=== PATIENT | male | born 1955 | race Caucasian/White ===

== ENCOUNTER → 2024-04-12 06:24 | Outpatient (REF) | payer MEDICARE, OTHER, SELFPAY ==
[2024-04-12 10:00] LABS: Hematocrit 40.7 % (39.0-52.0); Hemoglobin 14.2 g/dL (13.0-18.0); Mean Corp Hgb Conc. 34.9 g/dL (33.0-37.0); Mean Corpuscular Volume 88.9 fL (80.0-94.0); Mean Platelet Volume 11.7 fL (7.4-10.4); Platelet Count 197 10^3/uL (130-400); Red Blood Cell Count 4.58 10^6/uL (4.70-6.10); Red Cell Dist. Width 13.2 % (11.5-14.5); White Blood Cell Count 5.2 10^3/uL (4.8-10.8)
[2024-04-12 10:12] LABS: ALT (SGPT) 21 U/L (0-50); AST (SGOT) 26 U/L (17-59); Alkaline Phosphatase 76 U/L (38-126); Blood Urea Nitrogen 20 mg/dl (9-20); Calcium 9.1 mg/dl (8.4-10.2); Carbon Dioxide 28 mmol/L (22-30); Chloride 104 mmol/L (98-107); Glucose 108 mg/dl (70-99); HDL Cholesterol 68 mg/dl; LDL Cholesterol, Calculated 140 mg/dl; Sodium 138 mmol/L (135-145); Total Bilirubin 0.8 mg/dl (0.2-1.3); Total Cholesterol 220 mg/dl (50-199); Total Protein 6.7 g/dl (6.3-8.2); Triglyceride 61 mg/dl (10-149); Very Low Density Lipoprotein 12 mg/dl (0-30); eGFR > 60.00
[2024-04-12 10:43] LABS: PSA, Total - Screen 1.39 ng/ml (0.0-4.0); TSH Reflex To Free T4 0.77 uIU/ml (0.47-4.68)
[2024-04-12 14:39] LABS: Lyme Antibody Screen, EIA Negative (Negative)
== END ==
LOC: HWRAD 06:24
PROVIDERS: ATTENDING PHYSICIAN Physician Assistant
DX: G43.E09 Chronic migraine with aura, not intractable, without status migrainosus (principal); G43.909 Migraine, unspecified, not intractable, without status migrainosus; G89.29 Other chronic pain; M25.511 Pain in right shoulder; R10.11 Right upper quadrant pain; E78.00 Pure hypercholesterolemia, unspecified; Z12.5 Encounter for screening for malignant neoplasm of prostate
CPT/HCPCS: 36415; 70450; 73030; 80053; 80061; 84443; 85027; 86618; G0103

== ENCOUNTER → 2024-04-26 14:39 | Outpatient (REF) | payer MEDICARE, OTHER, SELFPAY | LOC: HWRCS 14:39 | PROVIDERS: ATTENDING PHYSICIAN Physician Assistant | DX: R01.1 Cardiac murmur, unspecified (principal) | CPT/HCPCS: 93306 ==

== ENCOUNTER 2024-07-05 07:54 | Day surgery (SDC) | payer MEDICARE, OTHER, SELFPAY ==
[2024-07-05] VITALS (14 sets, daily range): BP systolic 100–146; BP diastolic 50–77; BMI 25.4
[2024-07-05] MEDS: LOW STRENGTH ASPIRIN 81 MG PO (09:23)
[2024-07-05] MEDS: NSS 224 ML IV (09:24)
[2024-07-05 09:37] LABS: Hematocrit 45.2 % (39.0-52.0); Hemoglobin 15.9 g/dL (13.0-18.0); Mean Corp Hgb Conc. 35.2 g/dL (33.0-37.0); Mean Corpuscular Hgb 31.5 pg (27.0-31.0); Mean Corpuscular Volume 89.5 fL (80.0-94.0); Mean Platelet Volume 10.3 fL (7.4-10.4); Platelet Count 252 10^3/uL (130-400); Red Blood Cell Count 5.05 10^6/uL (4.70-6.10); Red Cell Dist. Width 12.8 % (11.5-14.5); White Blood Cell Count 6.5 10^3/uL (4.8-10.8)
[2024-07-05 09:51] LABS: Blood Urea Nitrogen 25 mg/dl (9-20); Calcium 9.8 mg/dl (8.4-10.2); Carbon Dioxide 25 mmol/L (22-30); Chloride 103 mmol/L (98-107); Estimated Creatinine Clearance 60 ml/min; Glucose 108 mg/dl (70-99); Potassium 4.6 mmol/L (3.5-5.1); Sodium 140 mmol/L (135-145); eGFR > 60.00
--- NOTE | 2024-07-05 11:49 | ITS.CL.CATH ---
Facility Planner - Catheterization
Cardiac Catheterization
Procedure Report:
LEFT HEART CATHETERIZATION
Date of Procedure: July 05, 2024
Referring: Dr. Perry Sood
PROCEDURES:
1. Coronary angiography
INDICATION: Severe symptomatic aortic stenosis
ACCESS: Right radial artery, 6 Syriac sheath
HEMODYNAMICS : (mmHg)
AO (s/d) : 115/68
CORONARY FINDINGS
DOMINANCE: Right
LEFT MAIN: Normal
LEFT ANTERIOR DESCENDING: The LAD arises normally from the left main running in the anterior interventricular groove. The LAD supplies a single large diagonal branch from its midportion. Only minor irregularities are noted in the LAD or diagonal
branch
CIRCUMFLEX: The circumflex is a medium caliber nondominant vessel giving rise to a small bifurcating OM1 which arises proximally and terminating in a moderate caliber OM 2. The circumflex and obtuse marginal branches are widely patent
RIGHT CORONARY ARTERY: The right coronary artery is a large-caliber dominant vessel that gives rise to a large PDA and large posterolateral branch. Only minor luminal irregularities are noted.
RADIATION SUMMARY: Fluoro Time (min): 4.8, Dose (mGy): 308, DAP (Gy.cm2) : 22.6
Closure Device: TR band
CONCLUSIONS
1. Nonobstructive coronary disease
2. Symptomatic aortic stenosis
RECOMMENDATIONS
1. Nonobstructive coronary disease
Copy to: Dr. Perry Sood
[2024-07-05] MEDS: NSS 1000 IV (12:16)
--- NOTE | 2024-07-05 13:23 | CONSULT.STRU ---
Consultation
-
Date/Time Consultation Requested: 07/05/2024
Date/Time Consultation Performed: 07/05/2024
Requesting Provider: Dr. Elan Hernández
Performing Provider: ZORA Hui
Reason for Consultation: Severe Aortic Stenosis/ TAVR evaluation
Patient History
Physicians
Family Physician: Alejandrina Horowitz
Outpatient Proof Tester: Dr. Sood
Primary Proof Tester: Dr. Sood
History of Present Illness
Mr. Huffman is a very pleasant 68yo gentleman who is here today for his cardiac catheterization as part of the evaluation of his aortic stenosis. He is known to have a bicuspid aortic valve. His echocardiogram is notable for PG/MG 92/60, CHEYENNE: 0.8, AV
peak velocity 479cm/s. Moderate AI. EF is 60-65%. Mild MR. Mild TR. Cardiac cath complete with nonobstructive CAD. Patient denies chest pain, palpitations, PND, orthopnea and peripheral edema. He is unsure if he has any symptoms. He does have GROVES
with vigorous activity such as chasing his dog. He may note some mild fatigue. Overall he remains fairly active.
Reviewed the pathophysiology of aortic stenosis with the patient. Explained the treatment options of SAVR and TAVR. Explained the TAVR evaluation process including follow up BMP, CT TAVR scan, CT surgery consult and Heart Team discussion. Provided
with script for BMP next week, script and appointment for CT TAVR, Consult appointment with Dr. Fitch and a copy of the TAVR education booklet with contact information. Allowed for and answered questions.
Past Medical History
Past Medical History: Cancer (Basal Cell left eye) and Other (Migraines)
Past Surgical History
Past Surgical History: Other (Basal cell excision left eye)
Dental History
Dr. Parker - regular dental care every 6 months
Family History
Mother: Still Living
Father: at Age (80yo, prostate CA and kidney failure)
Social History
Alcohol: Occasional
Drug: None
Tobacco: Non-Smoker
Personal:
Living: With Spouse
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
Allergies
Allergy/AdvReac Type Severity Reaction Status Date / Time
No Known Allergies Allergy Verified 07/05/24 09:12
Home Medications
�Medication �Instructions �Recorded �Confirmed �Type
aspirin 81 mg tablet,delayed 81 mg PO DAILY #1 tab 07/05/24 Rx
release
avdroxpdywyr-knl-nnmly acid-vit 2 tab PO DAILY 07/05/24 07/05/24 History
K-lycop 400 mcg-20 mcg-370 mcg
tablet (Men's 50 Plus Multivitamin)
STS%
STS %: 0.625%
Review of Systems
-
History Source: Patient
General: Reports Fatigue (mild)
Respiratory: Reports No Symptoms; Denies SOB, Cough, Asthma or PND
Cardiac: Reports No Symptoms; Denies Chest Pain, Palpitations or Edema
Abdomen/GI: Reports No Symptoms; Denies Abdominal Pain, Reflux, Nausea, Vomiting or Diarrhea
: Reports No Symptoms; Denies Dysuria
Musculoskeletal: Reports No Symptoms
Skin: Reports No Symptoms
Neurological: Reports Headaches (migraine history)
Vascular: Reports No Symptoms
Physical Exam
Vital Signs
Temp 98.3 F 07/05/24 11:20
Temp route: Oral 07/05/24 11:15
Pulse 56 07/05/24 13:03
Resp Rate 18 07/05/24 11:30
Blood pressure 105/60 07/05/24 13:03
Blood pressure extremity used: Left upper arm 07/05/24 11:15
Position: Sitting 07/05/24 11:15
MAP (cuff-Nathanael Monitor) 75 07/05/24 13:03
SaO2 98 07/05/24 13:03
Oxygen Mode of Delivery Room air 07/05/24 11:15
Can the patient verbally communicate their pain? Yes 07/05/24 13:05
Actual Weight 74.6 kg 07/05/24 09:12
Body Mass Index (BMI) 25.4 07/05/24 09:12
Labs
07/05/24 09:17
07/05/24 09:17
Diagnostic Studies
Echocardiogram 04/26/2024
CONCLUSIONS
Normal left ventricular size, wall thickness and systolic function. No regional
wall motion abnormalities are seen. LV ejection fraction is 60-65% by Guerra's
method of discs. Normal diastolic function.
Mildly thickened mitral valve leaflets with mild mitral regurgitation.
Moderately dilated left atrium. Indexed LA volume is moderately abnormal (42-48
mL/m2).
Calcified, trileaflet aortic valve with decreased leaflet excursion. Severe
aortic stenosis. Peak and mean gradients of 92 and 60 mmHg, respectively
(from the RSB). Estimated CHEYENNE is 0.8 cm2., using an LVOT of 2.1 cm. Mild to
moderate aortic regurgitation.
Since echocardiogram March 2019, the aortic stenosis has worsened. Mean
pressure gradient is increased from 29 mmHg to 60 mmHg.
Indications:
Cardiac murmur, unspecified, Nonrheumatic aortic (valve) stenosis
Rhythm: Sinus
Portable Study: No
Technical Quality: Fair
Contrast: None
BP: 102 / 60
PROCEDURE
A complete Transthoracic Echocardiogram was performed utilizing two-dimensional
evaluation with color flow and spectral Doppler analysis.
FINDINGS
Left Ventricle
Normal left ventricular size, wall thickness and systolic function. No regional
wall motion abnormalities are seen. LV ejection fraction is 60-65% by Guerra's
method of discs. Normal diastolic function.
Right Ventricle
Normal right ventricular size and function.
Left Atrium
Moderately dilated left atrium. Indexed LA volume is moderately abnormal (42-48
mL/m2).
Right Atrium
Normal right atrial size.
Mitral Valve
Mildly thickened mitral valve leaflets with mild mitral regurgitation.
Aortic Valve
Calcified, trileaflet aortic valve with decreased leaflet excursion. Severe
aortic stenosis. Peak and mean gradients of 92 and 60 mmHg, respectively
(from the RSB). Estimated CHEYENNE is 0.8 cm2., using an LVOT of 2.1 cm. Mild to
moderate aortic regurgitation.
Tricuspid Valve
Tricuspid valve opens normally with mild tricuspid regurgitation. Estimated
pulmonary artery pressure of 25 mmHg, assuming a right atrial pressure of 3
mmHg.
Pulmonic Valve
Pulmonic valve opens normally with trace pulmonic regurgitation.
Pericardium\\Pleura
Normal pericardium without effusion.
Aorta
Sinus of Valsalva is 3.3 cm., S-T junction is 2.9 cm. and proximal ascending
aorta 3.8 cm.
Other Finding
The IVC is of normal size and demonstrates normal respiratory variation.
Interatrial septum is intact with no evidence of shunting by color flow
Doppler. No intracardiac mass or thrombus formation seen.
MEASUREMENTS (Male / Female) Normal Values
2D ECHO
LV Diastolic Diameter PLAX 5.0 cm 4.2 - 5.9 / 3.9 - 5.3 cm
LV Systolic Diameter PLAX 3.1 cm
IVS Diastolic Thickness 1.0 cm 0.6 - 1.0 / 0.6 - 0.9 cm
LVPW Diastolic Thickness 1.0 cm 0.6 - 1.0 / 0.6 - 0.9 cm
LV Relative Wall Thickness 0.4
LVOT Diameter 2.1 cm
LV Ejection Fraction MOD BP 62.1 % >= 55 %
LV Stroke Volume MOD BP 72.0 cm3
LV Cardiac Index MOD BP 2367.2 cm3/min
LV Stroke Volume MOD 4C 65.0 cm3
LV Stroke Volume 4C AL 66.7 cm3
LV Stroke Volume MOD 2C 73.0 cm3
LV Stroke Volume 2C AL 78.6 cm3
LA Area 4C View 23.6 cm2 <= 20 cm2
LA Length 4C 5.7 cm
LA Volume 72.0 cm3 18 - 58 / 22 - 52 cm3
LA Volume Index 43.9 cm3/m2 16 - 34 cm3/m2
Ascending Aorta Diameter 3.8 cm
M-MODE
AV Cusp Separation MM 1.0 cm
DOPPLER
AV Peak Velocity 479.0 cm/s
AV Peak Gradient 91.8 mmHg
AV Mean Gradient 60.0 mmHg
AV Velocity Time Integral 113.4 cm
AI Peak Velocity 257.0 cm/s
AI Peak Gradient 26.4 mmHg
AI Pressure Half Time 445.0 ms
LVOT Peak Velocity 110.0 cm/s
LVOT Peak Gradient 4.8 mmHg
LVOT Velocity Time Integral 30.7 cm
LVOT Stroke Volume 106.3 cm3
LVOT Stroke Volume Index 56.4 ml/m2 empty
LVOT Cardiac Index 3496.0 cm3/min\\m2
AV Area Cont Eq vti 0.9 cm2
AV Area Cont Eq pk 0.8 cm2
Mitral E Point Velocity 66.1 cm/s
Mitral A Point Velocity 44.9 cm/s
Mitral E to A Ratio 1.5
LV E' Lateral Velocity 8.7 cm/s
Mitral E to LV E' Lateral Ratio 7.6
LV E' Septal Velocity 8.3 cm/s
Mitral E to LV E' Septal Ratio 7.9
TR Peak Velocity 237.0 cm/s
TR Peak Gradient 22.5 mmHg
Cardiac Catheterization 07/05/2024
HEMODYNAMICS : (mmHg)
AO (s/d) : 115/68
CORONARY FINDINGS
DOMINANCE: Right
LEFT MAIN: Normal
LEFT ANTERIOR DESCENDING: The LAD arises normally from the left main running in the anterior interventricular groove. The LAD supplies a single large diagonal branch from its midportion. Only minor irregularities are noted in the LAD or diagonal
branch
CIRCUMFLEX: The circumflex is a medium caliber nondominant vessel giving rise to a small bifurcating OM1 which arises proximally and terminating in a moderate caliber OM 2. The circumflex and obtuse marginal branches are widely patent
RIGHT CORONARY ARTERY: The right coronary artery is a large-caliber dominant vessel that gives rise to a large PDA and large posterolateral branch. Only minor luminal irregularities are noted.
RADIATION SUMMARY: Fluoro Time (min): 4.8, Dose (mGy): 308, DAP (Gy.cm2) : 22.6
Closure Device: TR band
CONCLUSIONS
1. Nonobstructive coronary disease
2. Symptomatic aortic stenosis
RECOMMENDATIONS
1. Nonobstructive coronary disease
Exam
General: Well Developed, Well Nourished, No Apparent Distress and Comfortable
HEENT: Normocephalic, Moist Mucous Membranes and PERRLA
Neck: Trachea Midline
Respiratory: Clear; Negative Wheezes, Crackles or Rhonchi
Cardiac: S1/S2, Regular Rhythm and Murmur (Grade III/ systolic murmur)
GI: Soft, Non Tender, Non Distended and Normal Bowel Sounds
Rectal: Deferred by Provider
Skin: Warm
Neuro: AO x 3, No Motor Deficits and Nonfocal/Grossly Intact
Extremities: Negative Lower Level Edema
Psych: Calm
Assessment / Plan
-
Procedure Type:�Isolated AVR
PERIOPERATIVE OUTCOME ESTIMATE %
Operative Mortality 0.625%
Morbidity & Mortality 3.91%
Stroke 0.773%
Renal Failure 0.461%
Reoperation 3.2%
Prolonged Ventilation 1.47%
Deep Sternal Wound Infection 0.03%
Long Hospital Stay (>14 days) 1.17%
Short Hospital Stay (<6 days)* 71.9%
Severe Aortic stenosis:
��������������� Continue evaluation for TAVR
��������������� BMP 07/12/2024 at
��������������� CT TAVR scan 07/15/2024 at [facility] at
��������������� CT surgery consult with Dr. Fitch 07/20/2024
Dental clearance
��������������� Heart team discussion at [facility]
Data Reviewed
-
EKG: Report Reviewed by me
Motel Manager: Report Reviewed by me and Discussed with Physician
Echo: Report Reviewed by me
Labs: Labs Reviewed by me
Old Records: Reviewed (Cardiology office notes)
Total Time Spent with Patient (in minutes): 30
== END 2024-07-05 14:20 | disposition home or self-care (01) ==
LOC: CATH 07:54
PROVIDERS: ATTENDING PHYSICIAN Internal Medicine Interventional Cardiology; FAMILY PHYSICIAN Physician Assistant; OTHER PHYSICIAN Internal Medicine Cardiovascular Disease
DX: I35.2 Nonrheumatic aortic (valve) stenosis with insufficiency (principal); I25.10 Atherosclerotic heart disease of native coronary artery without angina pectoris; Z85.828 Personal history of other malignant neoplasm of skin; Z79.82 Long term (current) use of aspirin
CPT/HCPCS: 80048; 85027; 93454; C1894; Q9967

== ENCOUNTER → 2024-07-12 09:06 | Outpatient (REF) | payer MEDICARE, OTHER, SELFPAY ==
[2024-07-12 13:35] LABS: Blood Urea Nitrogen 23 mg/dl (9-20); Calcium 9.3 mg/dl (8.4-10.2); Carbon Dioxide 26 mmol/L (22-30); Chloride 101 mmol/L (98-107); Glucose 97 mg/dl (70-99); Potassium 4.7 mmol/L (3.5-5.1); Sodium 139 mmol/L (135-145); eGFR > 60.00
== END ==
LOC: HWLAB 09:06
PROVIDERS: ATTENDING PHYSICIAN Nurse Practitioner Adult Health; FAMILY PHYSICIAN Physician Assistant Medical
DX: I35.0 Nonrheumatic aortic (valve) stenosis (principal)
CPT/HCPCS: 36415; 80048

== ENCOUNTER → 2024-07-15 08:40 | Outpatient (REF) | payer MEDICARE, OTHER, SELFPAY | LOC: RAD 08:40 | PROVIDERS: ATTENDING PHYSICIAN Nurse Practitioner Adult Health; FAMILY PHYSICIAN Physician Assistant Medical | DX: I35.0 Nonrheumatic aortic (valve) stenosis (principal) | CPT/HCPCS: 74174; 75572; Q9967 ==

== ENCOUNTER → 2024-07-19 09:54 | Outpatient (REF) | payer MEDICARE, OTHER, SELFPAY | LOC: HWRAD 09:54 | PROVIDERS: ATTENDING PHYSICIAN Physician Assistant; OTHER PHYSICIAN Internal Medicine Cardiovascular Disease | DX: E04.1 Nontoxic single thyroid nodule (principal) | CPT/HCPCS: 76536 ==

== ENCOUNTER 2024-08-09 05:14 | Inpatient (IN) | payer MEDICARE, OTHER, SELFPAY ==
[2024-07-26 12:02] VITALS: BMI 26.2
[2024-07-26 12:40] LABS: % Basophils 0.5 % (0-2); % Eosinophils 1.9 % (0-6); % Immature Granulocytes 0.2 % (0-0.5); % Lymphocytes 25.2 % (20.5-51.1); % Monocytes 9.7 % (1.7-9.3); % Neutrophils 62.5 % (42.2-75.2); Absolute Eosinophils 0.1 10^3/uL (0-0.7); Absolute Lymphocytes 1.4 10^3/uL (1.2-3.4); Absolute Monocytes 0.6 10^3/uL (0.1-0.6); Absolute Neutrophils 3.6 10^3/uL (1.4-6.5); Hematocrit 43.1 % (39.0-52.0); Hemoglobin 15.1 g/dL (13.0-18.0); Mean Corpuscular Hgb 31.5 pg (27.0-31.0); Nucleated Red Blood Cells % 0 % (-); Platelet Count 246 10^3/uL (130-400); Red Blood Cell Count 4.79 10^6/uL (4.70-6.10); Red Cell Dist. Width 12.7 % (11.5-14.5); White Blood Cell Count 5.7 10^3/uL (4.8-10.8)
[2024-07-26 12:48] LABS: Urine Albumin Negative (Neg - Trace); Urine Bilirubin Negative (Negative); Urine Character Clear (Clear); Urine Color Yellow; Urine Glucose Negative (Negative); Urine Ketone Negative (Negative); Urine Leukocyte Negative (Negative); Urine Nitrite Negative (Negative); Urine Occult Blood Negative (Negative); Urine Urobilinogen Negative (Neg - 1+); Urine pH 6.5 (5.0-9.0)
[2024-07-26 12:57] LABS: INR 0.97; PT 12.7 Sec (11.4-14.6)
[2024-07-26 12:58] LABS: APTT 29.2 Sec (23.4-35.0)
[2024-07-26 13:24] LABS: ALT (SGPT) 25 U/L (0-50); AST (SGOT) 32 U/L (17-59); Albumin 4.4 g/dl (3.5-5.0); Alkaline Phosphatase 74 U/L (38-126); Blood Urea Nitrogen 19 mg/dl (9-20); Calcium 9.4 mg/dl (8.4-10.2); Carbon Dioxide 28 mmol/L (22-30); Chloride 100 mmol/L (98-107); Direct Bilirubin 0.2 mg/dl (0.0-0.4); Estimated Creatinine Clearance 65 ml/min; Glucose 94 mg/dl (70-99); Potassium 4.3 mmol/L (3.5-5.1); Sodium 138 mmol/L (135-145); Total Bilirubin 0.8 mg/dl (0.2-1.3); Total Protein 6.8 g/dl (6.3-8.2); eGFR > 60.00
--- NOTE | 2024-07-26 17:59 | CM ---
spoke to pt in PAT's, we discussed preop AVR teaching including driving and sternal precautions. he is prev indep, lives with is eric 2 story home with 4 steps to enter. he denies any dme's. he has the cardiac surgery book, soap and
instructions. he is agreeable to a f/uv visit from the ct transitional care nurse after dc. cm role explained and all questions answered. plan is for AVR 08/09, cm to follow.
--- NOTE | 2024-07-26 18:02 | CM ---
called Pallavi Almaguer JUNIOR NETWORK ENGINEER at ct surgery office, per patient he has a dental appt this wk to do a re- root canal. and he had a rash shortly after CT chest, went to PCP and they were unsure if it was from ASA or CT dye, he stopped his ASA and wanted
direction.
[2024-07-27 09:06] LABS: Glycohemoglobin (HgbA1c) 5.6 % (4.0-5.6)
[2024-08-09] VITALS (13 sets, daily range): BP systolic 94–131; BP diastolic 60–77; BMI 24.6
--- NOTE | 2024-08-09 00:52 | W.PN.CT ---
Assessment / Plan
-
Assessment:
-S/P Median sternotomy/AVR (#27 Inspiris), by Dr. Fitch, 08/09/24, pod#1
-Severe /bicuspid aortic valve
-Moderate AI
-Mild MR/TR
-LVEF 60-65%, per TTE 04/26/24 and intraop BOLA
-Incidental finding of b/l multiple thyroid nodules
-Migraines
-Seasonal allergies
-Basal cell ca on left eye s/p excision and cauterization
-Acute postop blood loss/Anemia (stable)
-Acute postop coagulopathy (transfused 2u FFPs and 1{5pk} plts)
-Acute postop atelectasis
-Acute postop hypovolemia with subsequent hypervolemia
Plan:
-No major issues overnight. Hemodynamically and neurologically intact
-Successfully extubated on 08/09/24 @ 1630
-Weaned off Levophed gtt overnight,remains on insulin gtt per protocol
-Last CI , MVO2 , u/o since mL
-D/C'd a-line and swan @
-D/C'd farnsworth @
-Will transfer to [facility] phase today once of insulin gtt
-Monitor chest tube drainage: 2med
-Cont. current meds (ASA, Amiodarone, Lopressor)
-Maintain cordis
-Maintain temporary PW (will cut before d/c home)
-Wean off of O2 as tolerated
-Encourage use of IS
-OOB into chair/Ambulate
Subjective
-
Date of Service: August 09, 2024
Objective Data
-
Lab Results
07/26/24 12:13
07/26/24 12:13
PT 12.7 Sec (11.4-14.6) 07/26/24 12:13
INR 0.97 07/26/24 12:13
APTT 29.2 Sec (23.4-35.0) 07/26/24 12:13
[2024-08-09] MEDS: BACTROBAN 2% OINTMENT 1 APPLIC NASAL ×2 (05:58→19:17)
[2024-08-09] MEDS: LOPRESSOR 12.5 MG PO (05:59)
[2024-08-09] MEDS: PROTONIX 40 MG PO (05:59)
[2024-08-09] MEDS: MAGNESIUM OXIDE 500 MG PO (05:59)
--- NOTE | 2024-08-09 07:13 | PTCARENOTE ---
Addendum entered by Dimitrios Brush RN 08/09/24 07:24:
Of note, pt explains he had a recent dx of R frozen shoulder which at times interferes with getting dressed.
Original Note:
Pt admitted to CVICU at 0500. VS done. Pt weighed. Height recorded. Pt clipped and prepped per [facility] protocol. Pre op meds given. Of note, HR 61-63 bpm. Ed, PA notified. Lopressor 12.5 mg given per order. Pt explains new allergy to IV contrast,
reaction: rash. Updated on Med reconciliation. Pt with old bruising to R ibarra. Reports this bruise and BLE edema after weekend activities with prolonged standing. Dr. Fitch made aware when visiting pt.Pt [facility] to [facility] at ~0655[facility] to [facility].
[2024-08-09 07:30] LABS: ACT+ - POC 98 Seconds (82-134)
[2024-08-09 08:22] LABS: Urine Albumin Negative (Neg - Trace); Urine Bilirubin Negative (Negative); Urine Character Clear (Clear); Urine Color Yellow; Urine Glucose Negative (Negative); Urine Ketone Negative (Negative); Urine Leukocyte Negative (Negative); Urine Nitrite Negative (Negative); Urine Occult Blood Negative (Negative); Urine Specific Gravity 1.005 (<1.030); Urine Urobilinogen Negative (Neg - 1+)
--- NOTE | 2024-08-09 08:35 | CM ---
Reviewed chart. Mr. Huffman is in the operating room today. Prior to admission he resides with his spouse in a two story home with four steps to enter. Prior to admission he was independent with ambulation and adls. He does not have any DME in the
home. He has a prescription plan. Medical work-up in progress. The discharge plan is to return home with [facility] when medically stable.
[2024-08-09 09:08] LABS: ACT+ - POC 751 Seconds (82-134)
[2024-08-09 09:31] LABS: B.E. - POC 0.1 mmol/L; Glucose - POC 115 mg/dl (70-99); HCO3 - POC 25 mmol/L (21-29); Hematocrit - POC 39 % PCV (42-52); Hemodilution- POC Yes; Hemoglobin Calculated - POC 13.3; Ionized Calcium - POC 1.23 mmol/L (1.12-1.27); O2 Saturation %Calculated-POC 99.7 % (92-96); PCO2 - POC 42 mmHg (35-45); PO2 - POC 196 mmHg (80-100); POC Comment PRE; Sodium - POC 140 mmol/L (135-145); pH - POC 7.39 (7.35-7.45)
[2024-08-09 10:00] LABS: B.E. - POC 3.5 mmol/L; Glucose - POC 142 mg/dl (70-99); HCO3 - POC 28 mmol/L (21-29); Hematocrit - POC 33 % PCV (42-52); Hemodilution- POC Yes; Hemoglobin Calculated - POC 11.3; Ionized Calcium - POC 1.02 mmol/L (1.12-1.27); PCO2 - POC 39 mmHg (35-45); PO2 - POC 397 mmHg (80-100); POC Comment CPB; Potassium - POC 4.9 mmol/L (3.6-5.0); Sodium - POC 137 mmol/L (135-145); pH - POC 7.46 (7.35-7.45)
[2024-08-09 10:14] LABS: ACT+ - POC 709 Seconds (82-134)
[2024-08-09 10:21] LABS: B.E. - POC 2.2 mmol/L; Glucose - POC 117 mg/dl (70-99); HCO3 - POC 28 mmol/L (21-29); Hematocrit - POC 35 % PCV (42-52); Hemodilution- POC Yes; Hemoglobin Calculated - POC 11.9; Ionized Calcium - POC 1.14 mmol/L (1.12-1.27); O2 Saturation %Calculated-POC 99.7 % (92-96); PCO2 - POC 46 mmHg (35-45); PO2 - POC 214 mmHg (80-100); POC Comment CPB; Potassium - POC 3.9 mmol/L (3.6-5.0); Sodium - POC 140 mmol/L (135-145); pH - POC 7.39 (7.35-7.45)
[2024-08-09 10:37] LABS: ACT+ - POC 767 Seconds (82-134)
[2024-08-09 11:01] LABS: B.E. - POC 1.8 mmol/L; Glucose - POC 79 mg/dl (70-99); HCO3 - POC 27 mmol/L (21-29); Hematocrit - POC 37 % PCV (42-52); Hemodilution- POC Yes; Hemoglobin Calculated - POC 12.5; Ionized Calcium - POC 1.11 mmol/L (1.12-1.27); PCO2 - POC 42 mmHg (35-45); PO2 - POC 408 mmHg (80-100); POC Comment WARM; Potassium - POC 4.3 mmol/L (3.6-5.0); Sodium - POC 141 mmol/L (135-145); pH - POC 7.41 (7.35-7.45)
[2024-08-09 11:07] LABS: ACT+ - POC 96 Seconds (82-134)
[2024-08-09 11:31] LABS: Glucose - POC 111 mg/dl (70-99); HCO3 - POC 21 mmol/L (21-29); Hematocrit - POC 32 % PCV (42-52); Hemodilution- POC Yes; Hemoglobin Calculated - POC 10.9; Ionized Calcium - POC 1.18 mmol/L (1.12-1.27); O2 Saturation %Calculated-POC 99.3 % (92-96); PCO2 - POC 31 mmHg (35-45); PO2 - POC 139 mmHg (80-100); POC Comment POST; Potassium - POC 5.3 mmol/L (3.6-5.0); Sodium - POC 141 mmol/L (135-145); pH - POC 7.45 (7.35-7.45)
--- NOTE | 2024-08-09 11:42 | W.CVOR.SURPR ---
CV[facility] Surgeon Immed Pre Op
-
I have examined this patient prior to performance of the scheduled procedure.
The patient's condition is unchanged from the time of the dictated/written History and
Physical and the patient is able to undergo the scheduled procedure.
--- NOTE | 2024-08-09 11:42 | W.IMMPOSTOP ---
Addendum entered and electronically signed by Osman Fitch MD 08/09/24 12:24:
[id number]
Original Note:
Surgical Immed Post Op Note
-
CARDIAC SURGERY OPERATIVE NOTE:
Preoperative Dx:
Severe aortic stenosis
Postoperative Dx:
Same
Procedures:
1) Median sternotomy
2) AVR (#27 Inspiris)
Surgeon:
Osman Fitch M.D.
Cloth Painter:
Marion Eubanks P.A.-C.; assistant account manager throughout
Anesthesia:
Dao Fernandez M.D. and Sushant GardnerR.N.A.
Perfusion:
Haley Kendall C.C.P.; XC: 72min, CPB: 97min
Findings:
Functionally bicuspid aortic valve w/ bulky leaflet calcifications w/ circumferential annular extensions.
Normal LM and RM locations
AVR secured w/ 17 interrupted, pledgetted valve sutures & CorKnots
Post-BOLA: Normal biventricular function, LVEF 60-65%, well-seated AVR w/o AI/PVL, mean gradient 3mmHg, bjvof-dj-ddgl TR
Complications:
None
Implants:
[employer]; Inspiris Resilia AVR #27mm; SN: [id number]
Epicardial V-wire x 1; grounding wire x 1
CT x 2
Sternal wires x 7
Sternal 'Square' plates x 2 w/ 4 - 14mm and 4 - 12mm screws
Transfusions:
None
Condition:
64 isoelectric sinus (-0.1/-0.1), 105/63. 37/21. CVP 15. CO/CI: 4.2/2.1. 100%
GTTS: levophed 2, precedex 0.6, no insulin
Stable/guarded to CVICU
--- NOTE | 2024-08-09 12:00 | PTCARENOTE ---
Received from [facility] at 1200, intubated and sedated; NSR on monitor; VSS; Epicardial v wires present with temporary pacemaker settings VVI 30/10/2; DP and radial pulses present, weakly palpable, no edema noted; Lungs clear; ETT size 8 positioned and
secured 23 @ right lip; Ventilator settings SIMV 16/500/5/5 FiO2 40%; mediastinal CTx2 to -20 cm wall suction with sanguinous drainage - no air leak, tidaling, or crepitus noted; hypoactive BS; Russo catheter in place draining clear, yellow urine;
sternal incision Aquacel CDI, R ibarra ecchymotic CLIN ASST; Left A-line in place, RIJ Delong Sherry @ 45/Cordis - all lines zeroed and leveled; #20 PIVx1 present in right forearm; Levo/Precedex infusing - see nursing documentation for further details.
[2024-08-09 12:01] LABS: Glucose - Point of Care 134 mg/dl (70-99)
[2024-08-09 12:15] LABS: B.E. -1.1 mmol/L; HCO3 22.6 mmol/L (21-28); Ionized Calcium 1.32 mMOL/L (1.15-1.33); O2 Saturation % 99.8 % (94-98); PCO2 34 mmHg (35-48); PO2 162 mmHg (83-108); Potassium 3.7 mMOL/L (3.5-5.1); Sodium 136 mMOL/L (136-145); pH 7.43 (7.35-7.45)
[2024-08-09 12:16] LABS: Hematocrit 36.3 % (39.0-52.0); Hemoglobin 12.8 g/dL (13.0-18.0); Platelet Count 193 10^3/uL (130-400)
[2024-08-09 12:20] LABS: ACT+ - POC > 1003 Seconds (82-134)
[2024-08-09] MEDS: NSS 500 IV (12:21)
[2024-08-09] MEDS: ANCEF 10 IV ×2 (12:21)
[2024-08-09] MEDS: LR 250 ML IV ×3 (12:21→17:16)
[2024-08-09 12:33] LABS: INR 1.48; PT 17.8 Sec (11.4-14.6)
[2024-08-09 12:39] LABS: Blood Urea Nitrogen 19 mg/dl (9-20); Estimated Creatinine Clearance 65 ml/min; Glucose 143 mg/dl (70-99); Magnesium 2.8 mg/dl (1.6-2.3)
[2024-08-09] MEDS: NOVOLOG FLEXPEN SC ×3 (12:49→17:10)
[2024-08-09] MEDS: NEURONTIN PO ×2 (12:49→15:17)
[2024-08-09] MEDS: KCL 50 IV ×2 (12:55→14:02)
[2024-08-09 12:59] LABS: Glucose - Point of Care 162 mg/dl (70-99)
--- NOTE | 2024-08-09 13:07 | CON.INTV ---
Consultation
Consultation Request
Date/Time Consultation Requested: 08/09/2024-1 PM
Date/Time Consultation Performed: 08/09/2024-1:15 PM
Requesting Provider: Dr. Fitch
Performing Provider: Dr. Hernandez
Reason for Consultation: Postoperative ventilator/critical care management
Medical History
-
Chief Complaint: Aortic stenosis
History of Present Illness:
69-year-old male with a history of bicuspid aortic valve, aortic stenosis, migraines who underwent AVR and electrical logging engineer consulted for postoperative ventilator/critical care management 08/09/2024. Patient is intubated and sedated and review of
systems was unobtainable. Operative records were reviewed. Patient is on minimal norepinephrine and no inotropes. Platelets were provided.
Past Medical History
Past Medical History: None (Migraines. Bicuspid aortic valve/aortic stenosis/AVR 07/2024. Basal cell excision.)
Social History
Tobacco: Non-smoker
Alcohol: None (Rare)
Drug: None
Personal:
Living: With Family
Occupational Exposures: No known asbestos exposure
Environmental Exposures: No known tuberculosis exposure
Family History
Family History: Other (Father-kidney failure and prostate cancer.)
Allergies / Home Medications
Allergies
Allergy/AdvReac Type Severity Reaction Status Date / Time
IV Contrast Allergy Rash Uncoded 08/09/24 06:25
Home Medications
�Medication �Instructions �Recorded �Confirmed �Last Taken �Type
aspirin 81 mg tablet,delayed 81 mg PO DAILY #1 tab 07/05/24 08/09/24 08/07/24 06:00 Rx
release
jqgduonjgywe-nyv-tiisi acid-vit 2 tab PO DAILY 07/05/24 08/09/24 08/01/24 06:00 History
K-lycop 400 mcg-20 mcg-370 mcg
tablet (Men's 50 Plus Multivitamin)
cetirizine 10 mg tablet (Zyrtec) 10 mg PO DAILY 07/23/24 08/09/24 07/19/24 06:00 History
diphenhydramine HCl 25 mg capsule 25 mg PO HS 07/23/24 08/09/24 07/19/24 06:00 History
(Benadryl)
acetaminophen 500 mg tablet 1,000 mg PO Q6H PRN migraines 08/09/24 08/09/24 08/02/24 06:00 History
Review of Systems
-
Unable to Obtain full review of systems at this time due to: Patient Intubation
Vitals / Labs / Diagnostic Testing
Vital Signs
Temp Pulse Resp BP Pulse Ox
96.8 F L 72 14 131/65 99
08/09/24 12:37 08/09/24 12:00 08/09/24 12:00 08/09/24 05:59 08/09/24 12:00
Lab Data
08/09/24 12:03
Laboratory Results
08/09/24
12:03
PT 17.8 H
INR 1.48
APTT 30.0
pH 7.43
pCO2 34 L
pO2 162 H
HCO3 22.6
O2 Delivery Level
Diagnostic Testing:
Physical Exam
-
Exam:
Well-nourished and well-developed in no apparent distress
HEENT-atraumatic, normocephalic, oral tracheal intubation
Heart-regular rate and rhythm-no murmurs, rubs or gallops
Chest-clear to auscultation, no wheezes, crackles, median sternotomy bandage is not removed
Abdomen soft nondistended
Extremities-no cyanosis, clubbing, edema and good peripheral pulses
Integument-intact, no rashes, lesions or ecchymosis
Neurologically not alert, not oriented, not moving any of his extremities sedated on a ventilator
Assessment
-
69-year-old male with a history of bicuspid aortic valve, aortic stenosis, migraines who underwent AVR and electrical logging engineer consulted for postoperative ventilator/critical care management 08/09/2024.
Bicuspid aortic valve/aortic stenosis
AVR #27 Inspiris-Dr. Fitch 08/09/2024
Mild anemia-hemoglobin 12.8
Mild hyperglycemia-blood sugar 143
Conditions present prior to admission:
Migraines.
Bicuspid aortic valve/aortic stenosis/AVR 07/2024.
Basal cell excision.
Plan
Ventilator settings reviewed
FiO2 will be weaned
Minute ventilation will be adjusted
Arterial blood gases will be monitored
Spontaneous breathing trial will be attempted with hopeful extubation after anesthesia/sedation wear off
Pulmonary artery catheter parameters will be followed
Pressors/antihypertensive/inotropes/diuretics will be provided as needed
Monitor chest tube output
Monitor hemoglobin
Monitor platelet count and coags
Transfuse blood product if needed
CT surgery following chest tubes
Monitor blood sugar
Insulin drip per protocol
Aspiration precautions
VAP prevention protocol
DVT prophylaxis
Early nutrition
Early mobilization
Critical care statement: A total of 50 minutes of critical care time was provided for this patient today. This includes management of ventilator, spontaneous breathing trial, arterial blood gases, pressors, of unstable vital signs, evaluation of the
patient at bedside, reviewing the patient's pertinent medical records including radiographs, microbiology, laboratory evaluations, and discussion with primary team and critical care nursing.
Diagnostic data:
Chest x-ray 08/09/2024-postop changes, no significant pneumothorax, patchy atelectasis and minimal left pleural effusion
CT cardiac 08/14/2024-no pulmonary nodules, airspace disease, pleural effusions thyroid nodules measuring up to 1.6 cm, right hepatic lobe cyst measuring 3.2 cm as well as additional cysts, simple left renal cyst
Echocardiogram 04/26/2024-EF 60-65%, mild mitral regurgitation, severe aortic stenosis, CHEYENNE 0.8 cm�, moderate aortic regurgitation
Transesophageal echocardiogram 08/09/2024-EF 60-65%, severe aortic stenosis of a bicuspid aortic valve with moderate aortic insufficiency
Data Reviewed
-
EKG: Report reviewed by me
Radiology: Report reviewed by me
Medical Tests (Nuc Med, Echo etc): Report reviewed by me
Labs: Labs reviewed by me
Old Records: Reviewed
Critical Care Time (in minutes): 50
[2024-08-09 14:10] LABS: Glucose - Point of Care 212 mg/dl (70-99)
--- NOTE | 2024-08-09 14:11 | W.PN.CARDCBS ---
Addendum entered and electronically signed by Keon Cabrera MD 08/09/24 15:48:
I saw and examined the patient.
The Case Aide's note was reviewed and I agree with the note.
Comment:
GEN: No distress, awake, ET tube
HEENT: supple, anicteric, mmm
LUNGS: CTA, no wheezes/rales
CV: Reg, S1/S2, 1/6 syst LSB, no rub
ABD: soft, BS+, NT/ND
EXT: No edema
NEURO: Gross non-focal
SKIN: sternotomy
Plan:
Overall doing well status post AVR. In sinus rhythm
Wean to extubate. Wean Levophed.
Follow hemoglobin and creatinine. Start amiodarone.
Original Note:
Today's Communication / Plan
-
Wean sedation with anticipated extubation this afternoon
Monitor and trend hemoglobin, PLTS
Wean pressors as tolerated
Impression / Plan
-
PCP: Romy Anderson PA-C
Strategic Sourcing Specialist: Dr. Perry Sood
Impression:
Presents 08/09/2024 for elective SAVR
Severe symptomatic aortic stenosis
s/p AVR #27 Inspiris-Dr. Fitch 08/09/2024
Migraine headaches
Basal cell cancer status post excision
Echo 04/26/2024: EF 60 to 65%. Normal regional wall motion. Mild MR. Mildly dilated left atrium (42-48 mL per M2) severe aortic stenosis with peak/mean gradient 92/60 mmHg, [place] 0.8 cm�. Mild to moderate AI.
Cardiac catheterization 07/05/2024: Nonobstructive coronary artery disease
Plan:
-Severe symptomatic aortic stenosis s/p AVR #[address] Fitch 08/09/2024
-Patient seen postop. He remains intubated and sedated. Sedation being weaned with anticipated extubation this afternoon
-Currently on Levophed at 3 mcg/min and insulin gtt. Wean as tolerated
-Postop EKG shows sinus rhythm with T wave inversion in inferior leads.
-continue to monitor on tele
-Postop hemoglobin stable at 12.8, PLTS 193. Getting FFP and PLTs
-Postop chest x-ray no evidence of pneumothorax with patchy atelectasis in both lower lobes. Minimal left pleural effusion.
HPI:
69-year-old male with a history of bicuspid aortic valve with severe symptomatic aortic stenosis, migraines who underwent cardiac catheterization June 2024 which demonstrated nonobstructive coronary artery disease. Catheterization confirmed
severe aortic stenosis. He was admitted 08/09/2024 for elective SAVR with Dr. Fitch. Cardiology being asked to see patient for postoperative managementnt.
Progress Note - Strategic Sourcing Specialist
Subjective
Date of Service: August 09, 2024
Patient seen and examined. Remains intubated and sedated but opening eyes
Objective
Labs:
08/09/24 12:03
Labs
Hgb 12.8 g/dL (13.0-18.0) L 08/09/24 12:03
Hct 36.3 % (39.0-52.0) L 08/09/24 12:03
Plt Count 193 10^3/uL (130-400) 08/09/24 12:03
PT 17.8 Sec (11.4-14.6) H 08/09/24 12:03
INR 1.48 08/09/24 12:03
APTT 30.0 Sec (23.4-35.0) 08/09/24 12:03
Sodium 138 mmol/L (135-145) 07/26/24 12:13
Potassium 4.3 mmol/L (3.5-5.1) 07/26/24 12:13
BUN 19 mg/dl (9-20) 08/09/24 12:03
Creatinine 1.0 mg/dL (0.7-1.3) 08/09/24 12:03
Glucose 143 mg/dl (70-99) H 08/09/24 12:03
Vital Signs and I&O:
Vital Signs
Temp Pulse Resp BP Pulse Ox
98.2 F 79 17 131/65 99
08/09/24 14:00 08/09/24 14:05 08/09/24 14:05 08/09/24 05:59 08/09/24 14:05
Vital Signs
Temp Pulse Resp BP Pulse Ox
98.2 F 79 17 131/65 99
08/09/24 14:00 08/09/24 14:05 08/09/24 14:05 08/09/24 05:59 08/09/24 14:05
Intake & Output
08/07/24 08/08/24 08/09/24 08/10/24
06:59 06:59 06:59 06:59
Intake Total 496.8 / 496.8
Output Total 780 / 780
Balance -283.2 / -283.2
Physical Exam
Physical Exam
GEN: Intubated and sedated
HEENT: supple, anicteric, mmm
LUNGS: CTA, no wheezes/rales
CV: Reg, S1/S2, no murmur rub or gallop
ABD: soft, BS+, NT/ND
EXT: No edema, clubbing or cyanosis
NEURO: Intubated, sedation being weaned. Opening eyes
SKIN: No rash
[2024-08-09] MEDS: TYLENOL PO ×2 (14:28→22:10)
--- NOTE | 2024-08-09 14:45 | PTCARENOTE ---
BG 212, glycemic protocol initiated and started at 6 units/hr. Per protocol, give 4 units bolus, K [place] CVPA aware, and per PA, no bolus at this time.
[2024-08-09] MEDS: NOVOLIN R INSULIN INFUSION 100 IV (14:47)
[2024-08-09 14:48] LABS: Glucose - Point of Care 189 mg/dl (70-99)
[2024-08-09] MEDS: PACERONE PO (15:17)
[2024-08-09 15:40] LABS: B.E. -2.5 mmol/L; HCO3 21.6 mmol/L (21-28); Ionized Calcium 1.15 mMOL/L (1.15-1.33); PCO2 34 mmHg (35-48); PO2 184 mmHg (83-108); Potassium 4.5 mMOL/L (3.5-5.1); pH 7.41 (7.35-7.45)
[2024-08-09 15:52] LABS: Hematocrit 31.4 % (39.0-52.0); Hemoglobin 11.3 g/dL (13.0-18.0); Platelet Count 233 10^3/uL (130-400)
[2024-08-09 16:10] LABS: Glucose - Point of Care 184 mg/dl (70-99)
[2024-08-09] MEDS: ZOFRAN 4 MG IV (16:23)
--- NOTE | 2024-08-09 16:29 | PTCARENOTE ---
Patient extubated without issue, placed on 6LNC. No c/o pain, patient alert and calm. Had an episode of nausea, Zofran given. Patient's and sister at bedside, questions encouraged. No further needs expressed at this time.
[2024-08-09 17:08] LABS: Glucose - Point of Care 135 mg/dl (70-99)
[2024-08-09] MEDS: ANCEF 5 IV (17:11)
[2024-08-09] MEDS: CALCIUM CHLORIDE 10% SYRINGE 50 ML IV (17:18)
[2024-08-09] MEDS: CALCIUM CHLORIDE 10% SYRINGE 50 MG IV (17:18)
[2024-08-09 18:01] LABS: Glucose - Point of Care 97 mg/dl (70-99)
[2024-08-09] MEDS: LOW STRENGTH ASPIRIN 81 MG PO (18:07)
[2024-08-09] MEDS: REGLAN 10 MG IV (18:17)
[2024-08-09] MEDS: OFIRMEV 100 IV (18:20)
[2024-08-09 19:11] LABS: Glucose - Point of Care 101 mg/dl (70-99)
[2024-08-09 20:00] LABS: Glucose - Point of Care 125 mg/dl (70-99)
[2024-08-09 20:03] LABS: Ionized Calcium 1.33 mMOL/L (1.15-1.33)
[2024-08-09 20:06] LABS: Hematocrit 28.7 % (39.0-52.0); Hemoglobin 10.4 g/dL (13.0-18.0); Mean Corp Hgb Conc. 36.2 g/dL (33.0-37.0); Mean Corpuscular Volume 85.4 fL (80.0-94.0); Mean Platelet Volume 9.5 fL (7.4-10.4); Platelet Count 212 10^3/uL (130-400); Red Blood Cell Count 3.36 10^6/uL (4.70-6.10); Red Cell Dist. Width 12.6 % (11.5-14.5); White Blood Cell Count 14.9 10^3/uL (4.8-10.8)
[2024-08-09 20:18] LABS: INR 1.22; PT 15.2 Sec (11.4-14.6)
--- NOTE | 2024-08-09 20:30 | PTCARENOTE ---
Care of patient continued. Levo titrated per protocol, labs drawn per night auditor PA, 1 amp Na bicarb given. Patient sleeping between care. Endorses pain 1/10, exacerbated by movement. Patient sleeping between are, arouses to voice. Assessment of
needs ongoing.
[2024-08-09 20:33] LABS: Blood Urea Nitrogen 19 mg/dl (9-20); Calcium 9.2 mg/dl (8.4-10.2); Carbon Dioxide 24 mmol/L (22-30); Chloride 106 mmol/L (98-107); Estimated Creatinine Clearance 65 ml/min; Glucose 113 mg/dl (70-99); Potassium 4.5 mmol/L (3.5-5.1); Sodium 138 mmol/L (135-145); eGFR > 60.00
[2024-08-09] MEDS: SODIUM BICARBONATE 50 MEQ IV ×2 (20:43→23:25)
[2024-08-09] MEDS: SENOKOT-S 1 TABLET PO (20:43)
[2024-08-09] MEDS: NEURONTIN 100 MG PO (21:09)
[2024-08-09 22:05] LABS: Glucose - Point of Care 83 mg/dl (70-99)
[2024-08-09] MEDS: FLEXERIL 5 MG PO (22:12)
--- NOTE | 2024-08-09 23:00 | PTCARENOTE ---
assumed care of pt from previous RN. pt drowsy; oriented x4. R IJ cordis w/ swan floated to 45 cm. L radial a-line. all lines leveled, zeroed, flushed. SR on tele-monitor. temp epicardial v-wires w/ back up settings VVI 30//. CTx2 (mediastinal
x2) to -20 cm wall suction, draining sanguineous drainage. no air leaks noted. farnsworth catheter draining clear, yellow urine. all surgical sites stable, CDI. PIV intact. see worklist for complete nursing assessment, interventions, VS, and I&Os.
[2024-08-09] MEDS: DILAUDID 0.25 MG IV (23:39)
[2024-08-10] VITALS (34 sets, daily range): BP systolic 56–131; BP diastolic 47–93; PULSE 95; O2SAT 94–97; BMI 25.1
[2024-08-10 00:02] LABS: Glucose - Point of Care 133 mg/dl (70-99)
[2024-08-10] MEDS: ANCEF 5 IV ×2 (01:56→08:38)
[2024-08-10 01:59] LABS: Glucose - Point of Care 94 mg/dl (70-99)
--- NOTE | 2024-08-10 03:00 | PTCARENOTE ---
assessment remains unchanged. VSS. levo weaned off. CT drainage WNL. U/O >0.5ml/kg/h.
--- NOTE | 2024-08-10 03:46 | W.PN.CT ---
Today's Communication / Plan
-
Plan:
-No major issues overnight. Hemodynamically and neurologically intact
-Successfully extubated on 08/09/24 @ 1630
-Weaned off Levophed gtt overnight,remains on insulin gtt per protocol
-Last CI 2.81, u/o since OR 1040 mL
-Holding AM Lopressor given soft BP postop
-D/C'd a-line and swan @ 0530
-Will D/C farnsworth @ 0600
-Will transfer to [facility] phase today once of insulin gtt
-Monitor chest tube drainage: 2med 125/600
-Cont. current meds (ASA, Amiodarone, Lopressor-holding given soft BP)
-Maintain cordis
-Maintain temporary PW (will cut before d/c home)
-Wean off of O2 as tolerated
-Encourage use of IS
-OOB into chair/Ambulate
Assessment / Plan
-
Assessment:
-S/P Median sternotomy/AVR (#27 Inspiris), by Dr. Fitch, 08/09/24, pod#1
-Severe /bicuspid aortic valve
-Moderate AI
-Mild MR/TR
-LVEF 60-65%, per TTE 04/26/24 and intraop BOLA
-Incidental finding of b/l multiple thyroid nodules
-Migraines
-Seasonal allergies
-Basal cell ca on left eye s/p excision and cauterization
-Acute postop blood loss/Anemia (stable)
-Acute postop coagulopathy (transfused 2u FFPs and 1{5pk} plts)
-Acute postop atelectasis
-Acute postop hypovolemia with subsequent hypervolemia
Discussed patient care with: Cardiology, Nursing, Respiratory Therapy, Pharmacy and Care Team
Subjective
Procedure
S/P Median sternotomy/AVR (#27 Inspiris), by Dr. Fitch, 08/09/24
-
Date of Service: August 10, 2024
Pt c/o incisional pain, otherwise feels well
Objective Data
-
PT 15.2 Sec (11.4-14.6) H 08/09/24 19:55
INR 1.22 08/09/24 19:55
APTT 30.0 Sec (23.4-35.0) 08/09/24 12:03
Vital Signs
Vital Signs
Temp Pulse Resp BP Pulse Ox
99 F 71 18 109/63 99
08/10/24 03:00 08/10/24 03:00 08/10/24 03:00 08/10/24 03:00 08/10/24 03:00
CT Intake/Output/Weight
08/09/24 08/09/24 08/10/24
06:59 18:59 06:59
Intake Total 1940.9 / 2745.4 804.5 / 2745.4
Output Total 1105 / 1535 430 / 1535
Balance 835.9 / 1210.4 374.5 / 1210.4
SaO2: 99 (2L)
Physical Exam
-
General: Awake, Oriented and AOx3
Cardiovascular: Regular rate & rhythm, No Murmurs, No Rub and No Gallop
Respiratory: Decreased Breath Sounds (at bases, otherwise feels well)
Sternum: Stable
Incision: Clean, Dry, Intact and Dressing Intact
Extremities: Other (+trace edema)
Data Reviewed
-
Lab Results: Results Reviewed
Medications: Active Meds Reviewed
Chest X-Ray: Report Reviewed and Image Reviewed
ECG: Report Reviewed and Image Reviewed
[2024-08-10] MEDS: ZOFRAN 4 MG IV (03:48)
[2024-08-10 03:57] LABS: Glucose - Point of Care 117 mg/dl (70-99)
[2024-08-10 04:19] LABS: Hematocrit 27.5 % (39.0-52.0); Hemoglobin 9.9 g/dL (13.0-18.0); Mean Corpuscular Hgb 32.2 pg (27.0-31.0); Mean Corpuscular Volume 89.6 fL (80.0-94.0); Mean Platelet Volume 10.1 fL (7.4-10.4); Platelet Count 187 10^3/uL (130-400); Red Blood Cell Count 3.07 10^6/uL (4.70-6.10); Red Cell Dist. Width 12.6 % (11.5-14.5)
[2024-08-10] MEDS: ROXICODONE 2.5 MG PO (04:32)
[2024-08-10] MEDS: TYLENOL 1000 MG PO ×3 (04:32→21:58)
[2024-08-10 04:39] LABS: Blood Urea Nitrogen 21 mg/dl (9-20); Calcium 8.5 mg/dl (8.4-10.2); Carbon Dioxide 27 mmol/L (22-30); Chloride 106 mmol/L (98-107); Estimated Creatinine Clearance 65 ml/min; Glucose 118 mg/dl (70-99); Magnesium 1.9 mg/dl (1.6-2.3); Potassium 4.3 mmol/L (3.5-5.1); Sodium 143 mmol/L (135-145); eGFR > 60.00
[2024-08-10] MEDS: CALCIUM CHLORIDE 10% SYRINGE 60 MG IV (05:08)
[2024-08-10 06:09] LABS: Glucose - Point of Care 78 mg/dl (70-99)
[2024-08-10 07:00] LABS: Glucose - Point of Care 100 mg/dl (70-99)
--- NOTE | 2024-08-10 08:00 | PTCARENOTE ---
Assumed care of patient. Walking rounds completed with previous RN. Pt assessed while he was lying in bed. Pt alert and oriented x4. Pt rates sternal pain 5/10-see MAR. Denies nausea and shortness of breath. TALBOT with equal strength in all
extremities. Pt assisted OOB to chair with 2 assist. Slightly lightheaded upon standing. BP stable upon sitting in the chair. NSR on tele with rates in the 70s-80s. BP 106/65. Heart tones audible. Bilateral radial and DP pulses palpable. Generalized
trace edema. Epicardial v-wire to temp box, insulated per orders. POX 94% on RA. Lungs diminished in the bases. IS encouraged-500mL achieved. No cough noted. Mediastinal chest tubes x2 y-sited to 1 atrium to -20cm suction draining serosanguineous
fluid. No air leaks, tidaling, crepitus noted. Output WNL. Abdomen soft, nontender. Hypoactive BS. Pt due to void post farnsworth removal. Sternal incision covered with Aquacel CDI. Chest tube dressing changed. Right IJ cordis intact. Right hand PIV
intact. See MAR for medication administration. See worklist for complete nursing assessment. Plan of care reviewed and patient in agreement.
[2024-08-10 08:14] LABS: Glucose - Point of Care 106 mg/dl (70-99)
--- NOTE | 2024-08-10 08:17 | W.PN.ANS.POP ---
Anesthesia Post Operative
- Anesthesia Post Op Note
Vital Signs Stable-See Nursing Note: Yes
Airway Patent: Yes
Adequate Pain Control: Yes
Change in Mental Status: No
Current Postoperative Nausea & Vomiting: No
Anesthesia Complications: No
General Anesthetic Recall: No
Unplanned Admission: No
Post Op Hydration Adequate: Yes
- -
patient resting comfortably in bed. No comments or complaints at this time
--- NOTE | 2024-08-10 08:26 | W.PN.INTV ---
Today's Communication / Plan
Recommendations
Tolerated extubation, pressors weaned
Insulin drip continues-hopefully will be weaned off
Increase activity
Monitor chest tube output
Likely will be transferred to telemetry-veterinary physiologist will sign off
Assessment
-
69-year-old male with a history of bicuspid aortic valve, aortic stenosis, migraines who underwent AVR and veterinary physiologist consulted for postoperative ventilator/critical care management 08/09/2024.
Bicuspid aortic valve/aortic stenosis
AVR #27 Inspiris-Dr. Fitch 08/09/2024
Mild anemia-hemoglobin 12.8
Mild hyperglycemia-blood sugar 143
Conditions present prior to admission:
Migraines.
Bicuspid aortic valve/aortic stenosis/AVR 07/2024.
Basal cell excision.
Plan
tolerated extubation
Wean FiO2
Encourage incentive spirometry
Increase activity
Aspiration precautions
Pulmonary artery catheter and arterial line will be removed
Pressors have been weaned
Continue to monitor chest tube output
Follow hemoglobin
Continue to follow platelet count and coags
Transfuse blood product as needed
CT surgery following chest tubes as well
Follow blood sugar
Insulin supplementation continues as needed
Early nutrition
Early mobilization
DVT prophylaxis
Patient will be transferred to telemetry phase after insulin drip discontinuation-call pulmonary if respiratory issues arise
Reviewed the patient's pertinent medical records including radiographs, microbiology, laboratory evaluations, and discussion with primary team, and critical care nursing.
Diagnostic data:
Chest x-ray 08/09/2024-postop changes, no significant pneumothorax, patchy atelectasis and minimal left pleural effusion
CT cardiac 08/14/2024-no pulmonary nodules, airspace disease, pleural effusions thyroid nodules measuring up to 1.6 cm, right hepatic lobe cyst measuring 3.2 cm as well as additional cysts, simple left renal cyst
Echocardiogram 04/26/2024-EF 60-65%, mild mitral regurgitation, severe aortic stenosis, [place] 0.8 cm�, moderate aortic regurgitation
Transesophageal echocardiogram 08/09/2024-EF 60-65%, severe aortic stenosis of a bicuspid aortic valve with moderate aortic insufficiency
Subjective Dataa
Subjective Data
Date of Service:
Date of Service: August 10, 2024
Chief Complaint: Translation Director Follow Up, Pulmonary Follow Up and Vent Management Follow Up
Subjective:
Tolerated extubation, no complaints of shortness of breath, incisional pain managed, no abdominal pain
Review of Systems
General: Other (Per HPI)
Objective Data
Data Reviewed
Vital Signs / I&O / Oxygen:
Vital Signs
Temp Pulse Resp BP Pulse Ox
98.9 F 78 16 108/63 94
08/10/24 05:00 08/10/24 08:20 08/10/24 07:00 08/10/24 08:20 08/10/24 08:15
Intake and Output
08/09/24 08/10/24 08/11/24
06:59 06:59 06:59
Intake Total 2892.5 / 2903.8 23.3 / 23.3
Output Total 1685 / 1710 45 / 45
Balance 1207.5 / 1193.8 -21.7 / -21.7
SaO2 [CPAP/PSV] 100
SaO2 [SIMV] 99
SaO2 94
Nasal Cannula flow liters per 2
minute
Physical Exam
General: Respiratory Distress (n) and Comfortable
HEENT: Normocephalic, Anicteric and Moist Mucous Membranes
Cardiovascular: Regular Rhythm
Respiratory: Crackles (n), Rhonchi (n), Non-Labored Respirations, Accessory Resp Muscle Use (n) and Stridor (n)
GI: Soft, Non Distended and Non Tender
Neurology: Awake, Alert and No Motor Deficits
Skin: Warm, Good Color, Cyanosis (n), Jaundice (n) and Rash (n)
Labs/Micro/Reports
Lab Data
08/10/24 03:55
08/10/24 03:55
Laboratory Results
08/09/24 08/09/24 08/09/24
12:03 15:24 19:55
PT 17.8 H 15.2 H
INR 1.48 1.22
APTT 30.0
pH 7.43 7.41
pCO2 34 L 34 L
pO2 162 H 184 H
HCO3 22.6 21.6
O2 Delivery Level
[2024-08-10] MEDS: FLUSH (NSS) 1 FLUSH IV (08:38)
[2024-08-10] MEDS: BACTROBAN 2% OINTMENT 1 APPLIC NASAL ×2 (08:38→20:07)
[2024-08-10] MEDS: LIDOCAINE 4% PATCH 1 PATCH TOPICAL (08:38)
[2024-08-10] MEDS: THERAGRAN 1 TABLET PO (08:39)
[2024-08-10] MEDS: PROTONIX 40 MG PO (08:39)
[2024-08-10] MEDS: MAGNESIUM OXIDE 500 MG PO ×2 (08:39→20:06)
[2024-08-10] MEDS: SENOKOT-S 1 TABLET PO ×2 (08:39→20:06)
[2024-08-10] MEDS: PACERONE 200 MG PO ×4 (08:39→21:58)
[2024-08-10] MEDS: LOW STRENGTH ASPIRIN 81 MG PO (08:39)
[2024-08-10] MEDS: NEURONTIN 100 MG PO ×3 (08:39→21:58)
[2024-08-10] MEDS: ROXICODONE 5 MG PO ×2 (08:54→14:39)
--- NOTE | 2024-08-10 09:33 | W.PN.CARDCBS ---
Addendum entered and electronically signed by Keon Cabrera MD 08/10/24 12:07:
I saw and examined the patient.
The Therapy Director's note was reviewed and I agree with the note.
Comment:
GEN: No distress, awake, Ox3
HEENT: supple, anicteric, mmm
LUNGS: CTA, no wheezes/rales
CV: Reg, S1/S2, no rub
ABD: soft, BS+, NT/ND
EXT: No edema
NEURO: Gross non-focal
SKIN: No rash
Plan:
Overall doing well. Hemoglobin at 9.9. Continue amiodarone.
Remains in sinus rhythm. Blood pressure borderline. Holding metoprolol.
Creat is normal
Original Note:
Today's Communication / Plan
-
continue post op care
Impression / Plan
-
PCP: Romy Anderson PA-C
Press Shop Supervisor: Dr. Perry Sood
Impression:
Presents 08/09/2024 for elective SAVR
Severe symptomatic aortic stenosis
s/p AVR #27 Inspiris-Dr. Fitch 08/09/2024
Migraine headaches
Basal cell cancer status post excision
Echo 04/26/2024: EF 60 to 65%. Normal regional wall motion. Mild MR. Mildly dilated left atrium (42-48 mL per M2) severe aortic stenosis with peak/mean gradient 92/60 mmHg, [place] 0.8 cm�. Mild to moderate AI.
Cardiac catheterization 07/05/2024: Nonobstructive coronary artery disease
Plan:
-s/p AVR #[address] Fitch 08/09/2024
-doing well post op
-EKG SR with inferolateral T wave inversion. in SR with 1 8-beat run of NSVT on tele overnight. K/mag stable. continue amiodarone. holding BB due to relative hypotension.
-follow hgb, down to 9.9. continue asa. s/p 1 U plts and 2 FFP
-continue post op care
-encouraged OOB/IS as able
-d/w nursing
HPI:
69-year-old male with a history of bicuspid aortic valve with severe symptomatic aortic stenosis, migraines who underwent cardiac catheterization June 2024 which demonstrated nonobstructive coronary artery disease. Catheterization confirmed
severe aortic stenosis. He was admitted 08/09/2024 for elective SAVR with Dr. Fitch. Cardiology being asked to see patient for postoperative managementnt.
Progress Note - Press Shop Supervisor
Subjective
Date of Service: August 10, 2024
reports some post op pain, currently adequately managed
Objective
Labs:
08/10/24 03:55
08/10/24 03:55
Labs
Hgb 9.9 g/dL (13.0-18.0) L 08/10/24 03:55
Hct 27.5 % (39.0-52.0) L 08/10/24 03:55
Plt Count 187 10^3/uL (130-400) 08/10/24 03:55
PT 15.2 Sec (11.4-14.6) H 08/09/24 19:55
INR 1.22 08/09/24 19:55
APTT 30.0 Sec (23.4-35.0) 08/09/24 12:03
Sodium 143 mmol/L (135-145) 08/10/24 03:55
Potassium 4.3 mmol/L (3.5-5.1) 08/10/24 03:55
BUN 21 mg/dl (9-20) H 08/10/24 03:55
Creatinine 1.0 mg/dL (0.7-1.3) 08/10/24 03:55
Glucose 118 mg/dl (70-99) H 08/10/24 03:55
Vital Signs and I&O:
Vital Signs
Temp Pulse Resp BP Pulse Ox
98.0 F 78 16 108/63 94
08/10/24 08:00 08/10/24 08:20 08/10/24 08:00 08/10/24 08:20 08/10/24 08:15
Vital Signs
Temp Pulse Resp BP Pulse Ox
98.0 F 78 16 108/63 94
08/10/24 08:00 08/10/24 08:20 08/10/24 08:00 08/10/24 08:20 08/10/24 08:15
Intake & Output
08/08/24 08/09/24 08/10/24 08/11/24
07:59 07:59 07:59 07:59
Intake Total 2903.8 / 2915.8
Output Total 1710 / 1730
Balance 1193.8 / 1185.8 -8 / -8
Physical Exam
Physical Exam
GEN: No distress, awake, alert, oriented x3. sitting in chair
HEENT: supple, anicteric, mmm, eomi
LUNGS: CTA B/L, no wheezes/rales
CV: Reg, S1/S2, no murmur
ABD: soft, BS+, NT/ND
EXT: No cyanosis, clubbing. trace edema of B/L LE
NEURO: Gross non-focal
SKIN: Warm, pink, dry. No rash. Sternotomy dressing c/d/i
[2024-08-10 09:39] LABS: Glucose - Point of Care 112 mg/dl (70-99)
[2024-08-10] MEDS: FLEXERIL 5 MG PO ×2 (09:39→20:06)
[2024-08-10] MEDS: NOVOLOG FLEXPEN 4 UNITS SC (09:39)
[2024-08-10] MEDS: NSS IV (10:05)
[2024-08-10 11:02] LABS: Glucose - Point of Care 123 mg/dl (70-99)
[2024-08-10 12:12] LABS: Glucose - Point of Care 98 mg/dl (70-99)
--- NOTE | 2024-08-10 12:15 | PTCARENOTE ---
Pt reassessed. Pt sitting in the chair. Rates sternal pain 2/10. Denies nausea, shortness of breath. NSR on tele with rates in the 80s-90s. BP stable 100/64. POX 97% on RA. CT output WNL. V-wire insulated. Right IJ cordis and PIV intact. due to
void. Per CT MUCKING MACHINE OPERATOR, d/c insulin gtt.
[2024-08-10] MEDS: NOVOLOG FLEXPEN SC (12:23)
--- NOTE | 2024-08-10 16:45 | PTCARENOTE ---
Pt reassessed. VSS. RA. Surgical sites stable. CT output WNL. Pt assisted OOB and ambulated in the smart 50'. Pt tolerated. Pt voided joy urine in the urinal. Bladder scanned for additional 203, denies urge to void at this time. No acute changes.
[2024-08-10] MEDS: CALCIUM GLUCONATE 100 IV (20:07)
--- NOTE | 2024-08-10 21:45 | PTCARENOTE ---
Assumed care of pt from dayshift RN. Walking rounds completed. Pt AAOx3. TALBOT. SR on the tele monitor. HR 90s. Temporary epicardial v-wire insulated with cord easily accessible. BP 90s-100s/60s. Trace edema throughout. Bilateral hand +1. Palpable
pulses throughout. Pt on RA. POX 94-96%. Lung sounds diminished at the bases. IS and deep breathing encouraged. Mediastinal CTx2 to -20 suction, no airleak noted at this time, and output WNL. Abdomen soft/nontender. +BS. Pt stood to void in the
urinal. Denies nausea. All surgical sites stable. Right IJ cordis and PIVx1 CDI. 250 LR bolus per CTPA. Calcium gluconate and additional amiodarone dose ordered - see MAR. See worklist for full nursing assessment and interventions. Call martinez within
reach.
[2024-08-10] MEDS: DILAUDID 0.25 MG IV (21:58)
[2024-08-11] VITALS (39 sets, daily range): BP systolic 67–114; BP diastolic 44–77; PULSE 92; O2SAT 97–100; BMI 25.8
--- NOTE | 2024-08-11 00:13 | PTCARENOTE ---
No acute changes in assessment. Pt SR on the tele monitor. HR 80s. BP stable. Pt remains on RA. POX 93-94%. CT assessment unchanged from original and output WNL. Pt repositioned in bed. Call martinez within reach.
[2024-08-11] MEDS: ROXICODONE 5 MG PO ×3 (00:48→23:20)
--- NOTE | 2024-08-11 04:11 | W.PN.CT ---
Today's Communication / Plan
-
Plan:
-No major issues overnight. Hemodynamically and neurologically intact
-Off all drips
-Holding BB given soft BP postop. Increased Amiodarone to 400 TID given postop tachycardia
-Consider d/c of chest tubes: 2med 80/195
-Cont. current meds (ASA, Amiodarone, Lopressor-holding given soft BP)
-Maintain cordis another day
-Maintain temporary PW (will cut before d/c home)
-Encourage use of IS
-OOB into chair/Ambulate
-Home in 1-2 days
Assessment / Plan
-
Assessment:
-S/P Median sternotomy/AVR (#27 Inspiris), by Dr. Fitch, 08/09/24, pod#2
-Severe /bicuspid aortic valve
-Moderate AI
-Mild MR/TR
-LVEF 60-65%, per TTE 04/26/24 and intraop BOLA
-Incidental finding of b/l multiple thyroid nodules
-Migraines
-Seasonal allergies
-Basal cell ca on left eye s/p excision and cauterization
-Acute postop blood loss/Anemia (stable)
-Acute postop coagulopathy (transfused 2u FFPs and 1{5pk} plts)
-Acute postop atelectasis
-Acute postop hypovolemia with subsequent hypervolemia
Discussed patient care with: Cardiology, Nursing, Respiratory Therapy, Pharmacy and Care Team
Subjective
Procedure
S/P Median sternotomy/AVR (#27 Inspiris), by Dr. Fitch, 08/09/24
-
Date of Service: August 11, 2024
Pt c/o incisional pain, otherwise feels well
Objective Data
-
PT 15.2 Sec (11.4-14.6) H 08/09/24 19:55
INR 1.22 08/09/24 19:55
APTT 30.0 Sec (23.4-35.0) 08/09/24 12:03
Vital Signs
Vital Signs
Temp Pulse Resp BP Pulse Ox
97.9 F 81 16 98/61 94
08/11/24 04:00 08/11/24 04:00 08/11/24 04:00 08/11/24 04:00 08/11/24 04:00
CT Intake/Output/Weight
08/10/24 08/10/24 08/11/24
06:59 18:59 06:59
Intake Total 951.6 / 2903.8 600.2 / 940.2 340 / 940.2
Output Total 580 / 1710 240 / 470 230 / 470
Balance 371.6 / 1193.8 360.2 / 470.2 110 / 470.2
SaO2: 94 (RA)
Physical Exam
-
General: Awake, Oriented and AOx3
Cardiovascular: Regular rate & rhythm, No Murmurs, No Rub and No Gallop
Respiratory: Decreased Breath Sounds (at bases, otherwise clear)
Sternum: Stable
Incision: Clean, Dry, Intact and Dressing Intact
Extremities: Other (+trace edema)
Data Reviewed
-
Lab Results: Results Reviewed
Medications: Active Meds Reviewed
Chest X-Ray: Report Reviewed and Image Reviewed
ECG: Report Reviewed and Image Reviewed
[2024-08-11 04:20] LABS: Hematocrit 26.7 % (39.0-52.0); Hemoglobin 9.3 g/dL (13.0-18.0); Mean Corp Hgb Conc. 34.8 g/dL (33.0-37.0); Mean Corpuscular Hgb 31.7 pg (27.0-31.0); Mean Corpuscular Volume 91.1 fL (80.0-94.0); Mean Platelet Volume 9.9 fL (7.4-10.4); Platelet Count 165 10^3/uL (130-400); Red Blood Cell Count 2.93 10^6/uL (4.70-6.10); Red Cell Dist. Width 13.1 % (11.5-14.5); White Blood Cell Count 12.1 10^3/uL (4.8-10.8)
[2024-08-11 04:31] LABS: Blood Urea Nitrogen 27 mg/dl (9-20); Calcium 8.5 mg/dl (8.4-10.2); Carbon Dioxide 31 mmol/L (22-30); Chloride 99 mmol/L (98-107); Estimated Creatinine Clearance 65 ml/min; Glucose 135 mg/dl (70-99); Potassium 4.7 mmol/L (3.5-5.1); Sodium 137 mmol/L (135-145); eGFR > 60.00
--- NOTE | 2024-08-11 04:39 | PTCARENOTE ---
No change in assessment. Pt remains SR on the tele monitor. HR 80s. BP 90s/60s. Pt on RA. POX 92-94%. CT assessment unchanged from original. Labs drawn and sent. Call martinez within reach.
[2024-08-11] MEDS: CALCIUM GLUCONATE 100 IV (05:21)
[2024-08-11] MEDS: TYLENOL 1000 MG PO ×3 (05:21→21:52)
--- NOTE | 2024-08-11 05:29 | DOWNTIME ---
There was a [employer] Host Downtime on 08/11/2024 from 0100 to 08/11/2024 at 0355. Downtime documentation of patient's care, including medication administrations, has been reconciled in the electronic record per guidelines. Refer to the
patient's paper chart under the miscellaneous tab to see printed paper medication records and downtime forms.
[2024-08-11] MEDS: MYLICON 80 MG PO (06:28)
--- NOTE | 2024-08-11 08:00 | PTCARENOTE ---
Assumed care of patient from night monitor RN. AAO x 3. Sitting up in chair, pain management discussed. SR on monitor. Epicardial wire insulated. Room air 95%. Chest tubes x 2 to - 20 cm suction. No air leak or crepitus noted. Abdomen soft and
non tender, passing flatus, denies nausea at prestent. Tolerated breakfast. Pulses palpable, no edema appreciated.
[2024-08-11] MEDS: NEURONTIN 100 MG PO ×3 (08:33→21:52)
[2024-08-11] MEDS: LIDOCAINE 4% PATCH 1 PATCH TOPICAL (08:33)
[2024-08-11] MEDS: BACTROBAN 2% OINTMENT 1 APPLIC NASAL ×2 (08:33→20:02)
[2024-08-11] MEDS: LOW STRENGTH ASPIRIN 81 MG PO (08:34)
[2024-08-11] MEDS: PROTONIX 40 MG PO (08:34)
[2024-08-11] MEDS: MAGNESIUM OXIDE 500 MG PO ×2 (08:34→20:01)
[2024-08-11] MEDS: PACERONE 400 MG PO ×3 (08:34→21:52)
[2024-08-11] MEDS: THERAGRAN 1 TABLET PO (08:34)
[2024-08-11] MEDS: SENOKOT-S 1 TABLET PO ×2 (08:34→20:01)
[2024-08-11] MEDS: FLEXERIL 5 MG PO (08:40)
[2024-08-11] MEDS: TORADOL 15 MG IV ×2 (09:11→17:52)
--- NOTE | 2024-08-11 10:06 | W.PN.CARDCBS ---
Addendum entered and electronically signed by Neri Shaw DO 08/11/24 12:31:
I saw and examined the patient.
The Master [place]'s note was reviewed and I agree with the note.
Comment:
Plan:
Cont post op care as per CT surgery
Compensated cv status.
Monitor hypotension. Consider TEDs. If hypotension persists, could consider midodrine
Original Note:
Today's Communication / Plan
-
continue post op care
follow BPs
Impression / Plan
-
PCP: Romy Anderson PA-C
Gas Analyst: Dr. Perry Sood
Impression:
Presents 08/09/2024 for elective SAVR
Severe symptomatic aortic stenosis
s/p AVR #27 Inspiris-Dr. Fitch 08/09/2024
Migraine headaches
Basal cell cancer status post excision
Echo 04/26/2024: EF 60 to 65%. Normal regional wall motion. Mild MR. Mildly dilated left atrium (42-48 mL per M2) severe aortic stenosis with peak/mean gradient 92/60 mmHg, [place] 0.8 cm�. Mild to moderate AI.
Cardiac catheterization 07/05/2024: Nonobstructive coronary artery disease
Plan:
-s/p AVR #[address] Fitch 08/09/2024
-remains with intermittent hypotension, particularly with standing. reports some mild dizziness with walking with cardiac rehab this AM. BB on hold. could consider addition of KIT stockings or midodrine if BPs remain low.
-in SR on review of tele. continue amiodarone
-hgb 9.3. continue asa
-continue post op care, OOB/IS, cardiac rehab
-d/w nursing
HPI:
69-year-old male with a history of bicuspid aortic valve with severe symptomatic aortic stenosis, migraines who underwent cardiac catheterization June 2024 which demonstrated nonobstructive coronary artery disease. Catheterization confirmed
severe aortic stenosis. He was admitted 08/09/2024 for elective SAVR with Dr. Fitch. Cardiology being asked to see patient for postoperative managementnt.
Progress Note - Gas Analyst
Subjective
Date of Service: August 11, 2024
ambulatory with rehab with mild dizziness reported by patient. pain adequately controlled
Objective
Labs:
08/11/24 04:08
08/11/24 04:08
Labs
Hgb 9.3 g/dL (13.0-18.0) L 08/11/24 04:08
Hct 26.7 % (39.0-52.0) L 08/11/24 04:08
Plt Count 165 10^3/uL (130-400) 08/11/24 04:08
PT 15.2 Sec (11.4-14.6) H 08/09/24 19:55
INR 1.22 08/09/24 19:55
APTT 30.0 Sec (23.4-35.0) 08/09/24 12:03
Sodium 137 mmol/L (135-145) 08/11/24 04:08
Potassium 4.7 mmol/L (3.5-5.1) 08/11/24 04:08
BUN 27 mg/dl (9-20) H 08/11/24 04:08
Creatinine 1.0 mg/dL (0.7-1.3) 08/11/24 04:08
Glucose 135 mg/dl (70-99) H 08/11/24 04:08
Vital Signs and I&O:
Vital Signs
Temp Pulse Resp BP Pulse Ox
97.8 F 75 16 114/77 94
08/11/24 08:00 08/11/24 09:00 08/11/24 08:00 08/11/24 08:00 08/11/24 09:51
Vital Signs
Temp Pulse Resp BP Pulse Ox
97.8 F 75 16 114/77 94
08/11/24 08:00 08/11/24 09:00 08/11/24 08:00 08/11/24 08:00 08/11/24 09:51
Intake & Output
08/09/24 08/10/24 08/11/24 08/12/24
07:59 07:59 07:59 07:59
Intake Total 2903.8 / 2915.8 928.9 / 1188.9 260 / 260
Output Total 1710 / 1730 780 / 800
Balance 1193.8 / 1185.8 148.9 / 388.9 240 / 240
Physical Exam
Physical Exam
GEN: No distress, awake, alert, oriented x3. sitting in chair
HEENT: supple, anicteric, mmm, eomi
LUNGS: CTA B/L, no wheezes/rales
CV: Reg, S1/S2, no murmur
ABD: soft, BS+, NT/ND
EXT: No cyanosis, clubbing. trace edema of B/L LE
NEURO: Gross non-focal
SKIN: Warm, pink, dry. No rash. Sternotomy dressing c/d/i. CT in place
[2024-08-11] MEDS: ProAmatine 5 MG PO (11:20)
--- NOTE | 2024-08-11 11:45 | CM ---
Reviewed chart. Met with Mr. Huffman to review discharge plans. He states he is feeling well. He states prior to admission he resides with his spouse in a two story home with four steps to enter. He states he has a full flight of steps to get to
bedroom. He states he has a full bathroom on each floor. He states prior to admission he was independent with ambulation and adls. He ambulated 150 feet today but felt dizzy. He does not have any DME in the home. He has a prescription plan. He
states his spouse works from home and she will be able to assist in his care if needed. Medical work-up in progress. The discharge plan is to return home with his spouse with a home visit by the Transitional Care Nurse or [facility] Services when
medically stable.
[2024-08-11] MEDS: NSS IV (11:49)
--- NOTE | 2024-08-11 12:30 | PTCARENOTE ---
Pt received from Yajaira RN; AAOx3, responds to RN spontaneously and follows commands, YUROK; Flat affect; VSS; NSR on monitor; Epicardial V-wire insulated; Trace edema in B/L hands; +2 radial and DP pulses; Lungs diminished at bases; SpO2 96-98% on RA;
IS 500 ml; CT x2 draining serosanguineous drainage - no crepitus, tidaling, or air leak noted; Round abdomen, hypoactive BS; Urinating small amounts of joy urine in urinal; Surgical sites intact; R shoulder with LROM d/t PMH; RIJ Cordis with KVO
infusing; PIVx1; Patient denies any pain at this time; PO Midodrine 5 mg ordered and given; See nursing documentation for further details.
--- NOTE | 2024-08-11 16:30 | PTCARENOTE ---
Patient dizzy and lightheaded when ambulating in hallways with RN; When patient back in chair - BP found to have dropped - patient changed to lying position in chair and BP returned to baseline; CVNP Carli Canchola notified and aware - knee high KIT
stockings applied and PO hydration encouraged
--- NOTE | 2024-08-11 20:00 | PTCARENOTE ---
Received pt from [facility].pt resting comfortably in chair. pt assisted to stand and void, then assisted to bed. pt AAOx4 NSR on monitor. VSS. heart sounds audible, radial and DP pulses palpable, trace generalized edema noted, temp epicardial
v-wires insulated. lungs diminished at b/l bases, spo2 94% on RA, x2 MS CT to -20 wall suction, no air leaks, no tidaling, no crepitus. hypoactive BS x4, abdomen soft non tender. pt voiding clear yellow urine. surgical sites maintained. right IJ
cordis and PIV maintained. CHG bath provided along with new leads, and gown. call martinez within reach, will continue to monitor.
--- NOTE | 2024-08-11 23:27 | PTCARENOTE ---
Pt assisted to bedside to urinate. pt reported feeling dizzy and BP was taken, reading 67/44. pt was assisted back into bed. BP repeated and pt symptoms improved, see vital signs. Pt was able to void using urinal in bed. CVPA made aware of
orthostatic episode.
[2024-08-12] VITALS (24 sets, daily range): BP systolic 84–113; BP diastolic 60–75; PULSE 77; O2SAT 95–97; BMI 26.3
--- NOTE | 2024-08-12 | PTCARENOTE ---
Pt assessment unchanged. NSR on monitor. pt resting comfortably. call martinez within reach. will continue to monitor.
--- NOTE | 2024-08-12 04:00 | PTCARENOTE ---
Pt continues to be hypotensive, CVPA aware. pt currently resting comfortably in bed. no complaints of pain. call martinez within reach. will continue to monitor.
[2024-08-12 04:16] LABS: Hematocrit 23.9 % (39.0-52.0); Hemoglobin 8.4 g/dL (13.0-18.0); Mean Corp Hgb Conc. 35.1 g/dL (33.0-37.0); Mean Corpuscular Hgb 30.5 pg (27.0-31.0); Mean Corpuscular Volume 86.9 fL (80.0-94.0); Mean Platelet Volume 9.9 fL (7.4-10.4); Platelet Count 160 10^3/uL (130-400); Red Blood Cell Count 2.75 10^6/uL (4.70-6.10); Red Cell Dist. Width 12.9 % (11.5-14.5); White Blood Cell Count 8.3 10^3/uL (4.8-10.8)
[2024-08-12 04:39] LABS: Blood Urea Nitrogen 28 mg/dl (9-20); Carbon Dioxide 31 mmol/L (22-30); Chloride 96 mmol/L (98-107); Estimated Creatinine Clearance 65 ml/min; Glucose 117 mg/dl (70-99); Magnesium 2.2 mg/dl (1.6-2.3); Potassium 4.6 mmol/L (3.5-5.1); Sodium 134 mmol/L (135-145); eGFR > 60.00
[2024-08-12] MEDS: TYLENOL 1000 MG PO ×3 (06:08→21:34)
--- NOTE | 2024-08-12 06:09 | W.PN.CT ---
Today's Communication / Plan
-
-pod #3
-hypotensive overnight with symptomatic orthostasis - BP dropped to 67/44 when got up to void, felt dizzy. Will hold BB, started Midodrine 5 mg tid, continue Teds
-in nsr 70s, no bradycardia
-CT output: 2 meds 40/95 in 12/24 hrs
-Hg 8.4 today (9.3 on 08/11)
-temporary PW (will cut before d/c home)
-Weaned off of O2 -pOx 95% on RA
-Encourage use of IS
-OOB into chair/Ambulate as tolerated
Assessment / Plan
-
Assessment:
-S/P Median sternotomy/AVR (#27 Inspiris), by Dr. Fitch, 08/09/24, pod#3
-Severe /bicuspid aortic valve
-Moderate AI
-Mild MR/TR
-LVEF 60-65%, per TTE 04/26/24 and intraop BOLA
-Incidental finding of b/l multiple thyroid nodules
-Migraines
-Seasonal allergies
-Basal cell ca on left eye s/p excision and cauterization
-Acute postop blood loss/Anemia (stable)
-Acute postop coagulopathy (transfused 2u FFPs and 1{5pk} plts)
-Acute postop atelectasis
-Acute postop hypovolemia with subsequent hypervolemia
-Acute postop hypotension/orthostasis
Discussed patient care with: Nursing and Care Team
Subjective
Procedure
S/P Median sternotomy/AVR (#27 Inspiris), by Dr. Fitch, 08/09/24
-
Date of Service: August 12, 2024
Objective Data
-
PT 15.2 Sec (11.4-14.6) H 08/09/24 19:55
INR 1.22 08/09/24 19:55
APTT 30.0 Sec (23.4-35.0) 08/09/24 12:03
Vital Signs
Vital Signs
Temp Pulse Resp BP Pulse Ox
98.1 F 73 20 84/60 95
08/12/24 00:00 08/12/24 00:00 08/12/24 00:00 08/12/24 00:00 08/12/24 00:00
CT Intake/Output/Weight
08/11/24 08/11/24 08/12/24
06:59 18:59 06:59
Intake Total 340 / 940.2 2059
Output Total 265 / 505 705 / 1270 565 / 1270
Balance 75 / 435.2 1355 / 790 -565 / 790
SaO2: 95
Physical Exam
-
General: Awake, Oriented and AOx3
Cardiovascular: Regular rate & rhythm, No Murmurs, No Rub and No Gallop
Respiratory: Decreased Breath Sounds (at bases, otherwise feels well)
Sternum: Stable
Incision: Clean, Dry, Intact and Dressing Intact
Extremities: Other (+trace edema b/l)
Data Reviewed
-
Lab Results: Results Reviewed
Medications: Active Meds Reviewed
Chest X-Ray: Report Reviewed and Image Reviewed
ECG: Report Reviewed and Image Reviewed
--- NOTE | 2024-08-12 07:00 | SUR.OPER ---
vital signs captured from previous shift
--- NOTE | 2024-08-12 07:53 | PTCARENOTE ---
assumed care of pt from previous shift RN, sinus rhythm on tele w HR 70's, epicardial pacing wire insulated, + peripheral pulses, trace edema. Lungs diminished, pox 96% on RA. Coughing and deep breathing encouraged. +bs, tolerating PO intake, voids
spontaneously. Post op incisions w surgical glue intact. Cts w minimal amount of drainage, cordis and PIV flush easily. Plan of care reviewed w the pt and questions encouraged.
[2024-08-12] MEDS: MAGNESIUM OXIDE 500 MG PO ×2 (09:31→21:34)
[2024-08-12] MEDS: PACERONE 400 MG PO ×3 (09:31→22:24)
[2024-08-12] MEDS: LOW STRENGTH ASPIRIN 81 MG PO (09:31)
[2024-08-12] MEDS: SENOKOT-S 1 TABLET PO ×2 (09:32→21:34)
[2024-08-12] MEDS: LIDOCAINE 4% PATCH 1 PATCH TOPICAL (09:32)
[2024-08-12] MEDS: THERAGRAN 1 TABLET PO (09:32)
[2024-08-12] MEDS: PROTONIX 40 MG PO (09:32)
[2024-08-12] MEDS: NEURONTIN 100 MG PO ×3 (09:32→21:34)
[2024-08-12] MEDS: BACTROBAN 2% OINTMENT 1 APPLIC NASAL ×2 (09:32→21:34)
[2024-08-12] MEDS: ProAmatine 5 MG PO ×3 (09:35→17:05)
--- NOTE | 2024-08-12 10:26 | W.PN.CARDCBS ---
Addendum entered and electronically signed by Neri Shaw DO 08/12/24 11:57:
I saw and examined the patient.
The Director Biomedical Engineering's note was reviewed and I agree with the note.
Comment:
Plan:
Continue postop care.
Now on midodrine for BP support. Monitor BPs.
Low threshold for transfusion to support hemoglobin and volume status.
Remains in sinus on amiodarone.
Original Note:
Today's Communication / Plan
-
follow BPs
continue TEDs, midodrine.
continue post op care
Impression / Plan
-
PCP: Romy Anderson PA-C
Butt Trimmer: Dr. Perry Sood
Impression:
Presents 08/09/2024 for elective SAVR
Severe symptomatic aortic stenosis
s/p AVR #27 Inspiris-Dr. Fitch 08/09/2024
Migraine headaches
Basal cell cancer status post excision
Echo 04/26/2024: EF 60 to 65%. Normal regional wall motion. Mild MR. Mildly dilated left atrium (42-48 mL per M2) severe aortic stenosis with peak/mean gradient 92/60 mmHg, [place] 0.8 cm�. Mild to moderate AI.
Cardiac catheterization 07/05/2024: Nonobstructive coronary artery disease
Plan:
-s/p AVR #[address] Fitch 08/09/2024
-continues with symptomatic orthostasis. dropped overnight into 60s systolic with dizziness. continue TEDs. started on midodrine. holding BB
-hgb down to 8.4, consider for unit of PRBCs. does not appear grossly volume overloaded
-in SR. continue amidoarone
-continue post op care, OOB/IS, cardiac rehab
-d/w nursing
HPI:
69-year-old male with a history of bicuspid aortic valve with severe symptomatic aortic stenosis, migraines who underwent cardiac catheterization June 2024 which demonstrated nonobstructive coronary artery disease. Catheterization confirmed
severe aortic stenosis. He was admitted 08/09/2024 for elective SAVR with Dr. Fitch. Cardiology being asked to see patient for postoperative managementnt.
Progress Note - Butt Trimmer
Subjective
Date of Service: August 12, 2024
reports dizziness with standing
Objective
Labs:
08/12/24 03:57
08/12/24 03:57
Labs
Hgb 8.4 g/dL (13.0-18.0) L 08/12/24 03:57
Hct 23.9 % (39.0-52.0) L 08/12/24 03:57
Plt Count 160 10^3/uL (130-400) 08/12/24 03:57
PT 15.2 Sec (11.4-14.6) H 08/09/24 19:55
INR 1.22 08/09/24 19:55
APTT 30.0 Sec (23.4-35.0) 08/09/24 12:03
Sodium 134 mmol/L (135-145) L 08/12/24 03:57
Potassium 4.6 mmol/L (3.5-5.1) 08/12/24 03:57
BUN 28 mg/dl (9-20) H 08/12/24 03:57
Creatinine 1.0 mg/dL (0.7-1.3) 08/12/24 03:57
Glucose 117 mg/dl (70-99) H 08/12/24 03:57
Vital Signs and I&O:
Vital Signs
Temp Pulse Resp BP Pulse Ox
98 F 71 18 102/70 96
08/12/24 07:44 08/12/24 08:00 08/12/24 07:44 08/12/24 07:44 08/12/24 08:17
Vital Signs
Temp Pulse Resp BP Pulse Ox
98 F 71 18 102/70 96
08/12/24 07:44 08/12/24 08:00 08/12/24 07:44 08/12/24 07:44 08/12/24 08:17
Intake & Output
08/10/24 08/11/24 08/12/24 08/13/24
07:59 07:59 07:59 07:59
Intake Total 2903.8 / 2915.8 928.9 / 1188.9 2059
Output Total 1710 / 1730 780 / 800 2074
Balance 1193.8 / 1185.8 148.9 / 388.9 -15 / -5
Physical Exam
Physical Exam
GEN: No distress, awake, alert, oriented x3. sitting in chair
HEENT: supple, anicteric, mmm, eomi
LUNGS: CTA B/L, no wheezes/rales
CV: Reg, S1/S2, no murmur
ABD: soft, BS+, NT/ND
EXT: No cyanosis, clubbing. trace edema of B/L LE
NEURO: Gross non-focal
SKIN: Warm, pink, dry. No rash. Sternotomy dressing c/d/i. CT in place
[2024-08-12] MEDS: NSS IV (11:37)
--- NOTE | 2024-08-12 11:37 | PTCARENOTE ---
Mediastinal CTs and cordis removed without incident.
--- NOTE | 2024-08-12 13:35 | PTCARENOTE ---
pt c/o feeling like he was not completely emptying his bladder. Bladder scanned for 800ml, pt was able to void 200ml but continued w discomfort. Straight cathed for 700ml of clear yellow.
--- NOTE | 2024-08-12 16:45 | PTCARENOTE ---
VSS, sinus rhythm maintained on tele
[2024-08-13] VITALS (11 sets, daily range): BP systolic 107–144; BP diastolic 69–81; PULSE 71; O2SAT 97–99; BMI 25.4
[2024-08-13 05:25] LABS: Hematocrit 24.7 % (39.0-52.0); Hemoglobin 8.7 g/dL (13.0-18.0); Mean Corp Hgb Conc. 35.2 g/dL (33.0-37.0); Mean Corpuscular Hgb 30.6 pg (27.0-31.0); Mean Platelet Volume 9.6 fL (7.4-10.4); Platelet Count 209 10^3/uL (130-400); Red Blood Cell Count 2.84 10^6/uL (4.70-6.10); White Blood Cell Count 7.1 10^3/uL (4.8-10.8)
[2024-08-13 05:38] LABS: Blood Urea Nitrogen 23 mg/dl (9-20); Calcium 8.1 mg/dl (8.4-10.2); Carbon Dioxide 31 mmol/L (22-30); Chloride 102 mmol/L (98-107); Estimated Creatinine Clearance 65 ml/min; Glucose 116 mg/dl (70-99); Magnesium 2.3 mg/dl (1.6-2.3); Potassium 4.4 mmol/L (3.5-5.1); Sodium 137 mmol/L (135-145); eGFR > 60.00
--- NOTE | 2024-08-13 05:45 | W.PN.CT ---
Today's Communication / Plan
-
-pod #4
-Russo placed 08/12 for urinary retention. UO 800/3325 in 12/24 hrs
-on Midodrine 5 tid for hypotension/ orthostasis. BB is on hold
-difficult to diurese or treat retention d/t hypotension
-wt is up- 170 lbs on 08/12 from 159 preop
-temporary PW (will cut before d/c home)
-Weaned off of O2 -pOx 93% on RA
-Encourage use of IS
-OOB into chair/Ambulate as tolerated
Assessment / Plan
-
Assessment:
-S/P Median sternotomy/AVR (#27 Inspiris), by Dr. Fitch, 08/09/24, pod#4
-Severe /bicuspid aortic valve
-Moderate AI
-Mild MR/TR
-LVEF 60-65%, per TTE 04/26/24 and intraop BOLA
-Incidental finding of b/l multiple thyroid nodules
-Migraines
-Seasonal allergies
-Basal cell ca on left eye s/p excision and cauterization
-Acute postop blood loss/Anemia (stable)
-Acute postop coagulopathy (transfused 2u FFPs and 1{5pk} plts)
-Acute postop atelectasis
-Acute postop hypovolemia with subsequent hypervolemia
-Acute postop hypotension/orthostasis
-Acute postop urinary retention, requiring several straight caths, Russo re-inserted on 08/12
Discussed patient care with: Nursing and Care Team
Subjective
Procedure
S/P Median sternotomy/AVR (#27 Inspiris), by Dr. Fitch, 08/09/24
-
Date of Service: August 13, 2024
Objective Data
-
PT 15.2 Sec (11.4-14.6) H 08/09/24 19:55
INR 1.22 08/09/24 19:55
APTT 30.0 Sec (23.4-35.0) 08/09/24 12:03
Vital Signs
Vital Signs
Temp Pulse Resp BP Pulse Ox
98.2 F 64 18 100/70 93
08/12/24 21:00 08/12/24 22:30 08/12/24 21:00 08/12/24 22:21 08/12/24 15:45
CT Intake/Output/Weight
08/12/24 08/12/24 08/13/24
06:59 18:59 06:59
Intake Total
Output Total 1670 / 2375 2525 / 3325 800 / 3325
Balance -1670 / -315 -2505 / -3305 -800 / -3305
SaO2: 93
Physical Exam
-
General: Awake, Oriented and AOx3
Cardiovascular: Regular rate & rhythm, No Murmurs, No Rub and No Gallop
Respiratory: Decreased Breath Sounds, few rales at bases. No wheeze
Sternum: Stable
Incision: Clean, Dry, Intact and Dressing Intact
Abdomen: soft, nontender
Extremities: Other (+trace edema b/l)
Data Reviewed
-
Lab Results: Results Reviewed
Medications: Active Meds Reviewed
Chest X-Ray: Report Reviewed and Image Reviewed
ECG: Report Reviewed and Image Reviewed
[2024-08-13] MEDS: TYLENOL PO (06:40)
[2024-08-13] MEDS: LIDOCAINE 4% PATCH TOPICAL (08:41)
[2024-08-13] MEDS: THERAGRAN 1 TABLET PO (08:41)
[2024-08-13] MEDS: MAGNESIUM OXIDE 500 MG PO ×2 (08:41→19:26)
[2024-08-13] MEDS: LOW STRENGTH ASPIRIN 81 MG PO (08:41)
[2024-08-13] MEDS: SENOKOT-S 1 TABLET PO ×2 (08:41→19:26)
[2024-08-13] MEDS: BACTROBAN 2% OINTMENT 1 APPLIC NASAL (08:41)
[2024-08-13] MEDS: PROTONIX 40 MG PO (08:41)
[2024-08-13] MEDS: PACERONE 400 MG PO ×3 (08:41→19:25)
[2024-08-13] MEDS: NEURONTIN 100 MG PO ×3 (08:41→19:26)
[2024-08-13] MEDS: ProAmatine 5 MG PO ×3 (08:43→16:11)
[2024-08-13] MEDS: NSS IV (08:43)
--- NOTE | 2024-08-13 09:32 | PTCARENOTE ---
assumed care of pt from previous shift RN, sinus rhythm on tele, epicardial pacing wire insulated, VSS, + peripheral pulses, no edema. Lungs diminished, pox 94% on RA. +bs, tolerating PO intake, farnsworth catheter draining yellow. PIV flushes easily.
Plan of care reviewed w the pt and questions encouraged.
--- NOTE | 2024-08-13 12:14 | CM ---
Addendum entered by Brandi Grant 08/14/24 11:20:
Received telephone call from the Transitional Care Nurse and she will see Mr. Guerrero at home. Will hold on [facility] until after her visit.
Original Note:
Reviewed chart. Met with Mr. Huffman to review discharge plans. He states he is feeling better. He states he ambulated in the hallway today. He states he maybe able to go home soon. We reviewed [facility]NA Services with [facility]. He is agreeable
to a home visit. Prior to admission he resides with his spouse in a two story home with four steps to enter. He has a full flight of stairs to get to bedroom. He has a full bathroom on each floor. Prior to admission he was independent with
ambulation and adls. He has a prescription plan. He does not have any DME in the home. His spouse works from home and she will be available to assist in his care if needed when he goes home. Medical work-up in progress. The discharge plan is to
return home with his spouse and [facility] when medically stable.
--- NOTE | 2024-08-13 12:31 | PTCARENOTE ---
VSS, sinus rhythm maintained, assisted pt w ambulating in hallway, pt tolerated w minimal c/o dizziness.
[2024-08-13] MEDS: TYLENOL 1000 MG PO ×2 (12:53→19:25)
--- NOTE | 2024-08-13 13:47 | W.PN.CARDCBS ---
Today's Communication / Plan
-
Monitor BP
Midodrine
Beta-elia when able
Monitor on telemetry
PT OT
Impression / Plan
-
PCP: Romy Anderson PA-C
Bulk Plant Operator: Dr. Perry Sood
Impression:
Severe symptomatic aortic stenosis
s/p AVR #27 Inspiris-Dr. Fitch 08/09/2024
Migraine headaches
Basal cell cancer status post excision
Echo 04/26/2024: EF 60 to 65%. Normal regional wall motion. Mild MR. Mildly dilated left atrium (42-48 mL per M2) severe aortic stenosis with peak/mean gradient 92/60 mmHg, [place] 0.8 cm�. Mild to moderate AI.
Cardiac catheterization 07/05/2024: Nonobstructive coronary artery disease
Plan:
-s/p AVR #[address] Fitch 08/09/2024
-had urinary retention overnight and farnsworth placed; remains in place
-BP appears to be improving with midodrine, stable overnight. continue KIT stockings. BB remains on hold; symptomatic improvement with position changes
-reported transient blurry vision, resolved. follow
-hgb 8.7, stable
-in SR on review of tele overnight. continue amiodarone
-continue post op care, OOB/IS, cardiac rehab
-d/w nursing
HPI:
69-year-old male with a history of bicuspid aortic valve with severe symptomatic aortic stenosis, migraines who underwent cardiac catheterization June 2024 which demonstrated nonobstructive coronary artery disease. Catheterization confirmed
severe aortic stenosis. He was admitted 08/09/2024 for elective SAVR with Dr. Fitch. Cardiology being asked to see patient for postoperative managementnt.
Progress Note - Bulk Plant Operator
Subjective
Date of Service: August 13, 2024
Patient seen and examined. No acute events overnight. Patient resting comfortably in chair. Patient reports improvement in symptoms associated with orthostatics including ambulation to the washroom and in hallway with less significant dizziness.
Denies chest pain, shortness of breath, syncope, palpitations, weakness.
Objective
Labs:
08/13/24 04:44
08/13/24 04:44
Labs
Hgb 8.7 g/dL (13.0-18.0) L 08/13/24 04:44
Hct 24.7 % (39.0-52.0) L 08/13/24 04:44
Plt Count 209 10^3/uL (130-400) D 08/13/24 04:44
PT 15.2 Sec (11.4-14.6) H 08/09/24 19:55
INR 1.22 08/09/24 19:55
APTT 30.0 Sec (23.4-35.0) 08/09/24 12:03
Sodium 137 mmol/L (135-145) 08/13/24 04:44
Potassium 4.4 mmol/L (3.5-5.1) 08/13/24 04:44
BUN 23 mg/dl (9-20) H 08/13/24 04:44
Creatinine 1.0 mg/dL (0.7-1.3) 08/13/24 04:44
Glucose 116 mg/dl (70-99) H 08/13/24 04:44
Vital Signs and I&O:
Vital Signs
Temp Pulse Resp BP Pulse Ox
98 F 74 16 136/70 94
08/13/24 08:00 08/13/24 10:00 08/13/24 08:00 08/13/24 09:37 08/13/24 09:44
Vital Signs
Temp Pulse Resp BP Pulse Ox
98 F 74 16 136/70 94
08/13/24 08:00 08/13/24 10:00 08/13/24 08:00 08/13/24 09:37 08/13/24 09:44
Intake & Output
10/1608/12/24 08/13/24 08/14/24
06:59 06:59 06:59 06:59
Intake Total 940.2 / 940.2 2059 100 /
Output Total 505 / 505 2375 / 2375 3825 / 3825
Balance 435.2 / 435.2 -315 / -315 -3805 / -3805 100 / 100
Physical Exam
Physical Exam
GEN: No distress, awake, alert, oriented x3. sitting in chair
HEENT: supple, anicteric, mmm, eomi
LUNGS: CTA B/L, no wheezes/rales
CV: Reg, S1/S2, no murmur
ABD: soft, BS+, NT/ND
EXT: No cyanosis, clubbing. trace edema of B/L LE
NEURO: Gross non-focal
SKIN: Warm, pink, dry. No rash. Sternotomy dressing c/d/i.
[2024-08-13] MEDS: FLOMAX 0.4 MG PO (16:11)
--- NOTE | 2024-08-13 20:00 | PTCARENOTE ---
assumed care of patient @ 1900. received pt sitting in chair, AOx3. VSS on RA. no c/o pain. NSR on tele HR 60s. +pulses, trace edema in b/l hands. lungs clear, diminished. Belly soft, normoactive. farnsworth present draining clear yellow urine. surgical
sites CDI. PIV patent. assisted pt to walk down to glass atrium and back with steady gait. pt c/o of mild dizyzness however pressure good 140s. pt now resting comfortably in bed, call martinez within reach .
[2024-08-14] VITALS (8 sets, daily range): BP systolic 105–129; BP diastolic 61–70; BMI 25.1
--- NOTE | 2024-08-14 | PTCARENOTE ---
pt resting comfortably, no change in assessment .
--- NOTE | 2024-08-14 04:30 | PTCARENOTE ---
labs drawn and sent, pt resting comfortably in bed with call martinez within reach .
[2024-08-14 05:02] LABS: Hematocrit 24.9 % (39.0-52.0); Hemoglobin 8.9 g/dL (13.0-18.0); Mean Corp Hgb Conc. 35.7 g/dL (33.0-37.0); Mean Corpuscular Hgb 31.1 pg (27.0-31.0); Mean Corpuscular Volume 87.1 fL (80.0-94.0); Mean Platelet Volume 9.4 fL (7.4-10.4); Platelet Count 242 10^3/uL (130-400); Red Blood Cell Count 2.86 10^6/uL (4.70-6.10); Red Cell Dist. Width 12.9 % (11.5-14.5); White Blood Cell Count 6.1 10^3/uL (4.8-10.8)
[2024-08-14 05:21] LABS: Blood Urea Nitrogen 20 mg/dl (9-20); Carbon Dioxide 26 mmol/L (22-30); Chloride 103 mmol/L (98-107); Estimated Creatinine Clearance 73 ml/min; Glucose 118 mg/dl (70-99); Magnesium 2.2 mg/dl (1.6-2.3); Potassium 4.5 mmol/L (3.5-5.1); Sodium 137 mmol/L (135-145); eGFR > 60.00
--- NOTE | 2024-08-14 05:25 | W.PN.CT ---
Addendum entered and electronically signed by Osman Fitch MD 08/14/24 08:51:
I saw and examined the patient.
The PA's note was reviewed and I agree with the note.
Comment:
POD#5 s/p AVR (#27)
Orthostasis w/ syncope this AM w/ rapid recovery - no arrythmias
D/C flomax
D/C BB
D/C amiodarone
Increase midodrine
Maintain farnsworth today - D/C farnsworth at [facility] - will consult urology if void trial fails tomorrow
Original Note:
Today's Communication / Plan
-
-pod #5
-passed out in a chair this am, recovered once supine
-walked last night in the hallway without significant dizziness
-BP improving- on Midodrine 5 tid. BB is on hold
-autodiuresing, wt is down 6 lbs on 08/13. UO 1000/2400 in 12/24 hrs
-hg stable 8.9 today (8.7 on 08/13)
-on RA pox 97%
-Farnsworth is in for urinary retention - Flomax started 08/13
-Encourage use of IS
-OOB into chair/Ambulate as tolerated
Assessment / Plan
-
Assessment:
-S/P Median sternotomy/AVR (#27 Inspiris), by Dr. Fitch, 08/09/24, pod#5
-Severe /bicuspid aortic valve
-Moderate AI
-Mild MR/TR
-LVEF 60-65%, per TTE 04/26/24 and intraop BOLA
-Incidental finding of b/l multiple thyroid nodules
-Migraines
-Seasonal allergies
-Basal cell ca on left eye s/p excision and cauterization
-Acute postop blood loss/Anemia (stable)
-Acute postop coagulopathy (transfused 2u FFPs and 1{5pk} plts)
-Acute postop atelectasis
-Acute postop hypovolemia with subsequent hypervolemia
-Acute postop hypotension/orthostasis
-Acute postop urinary retention, requiring several straight caths, Farnsworth re-inserted on 08/12
Discussed patient care with: Nursing and Care Team
Subjective
Procedure
S/P Median sternotomy/AVR (#27 Inspiris), by Dr. Fitch, 08/09/24
-
Date of Service: August 14, 2024
Objective Data
-
Lab Results
08/14/24 04:36
08/14/24 04:36
PT 15.2 Sec (11.4-14.6) H 08/09/24 19:55
INR 1.22 08/09/24 19:55
APTT 30.0 Sec (23.4-35.0) 08/09/24 12:03
Vital Signs
Vital Signs
Temp Pulse Resp BP Pulse Ox
98.4 F 63 14 112/69 93
08/13/24 20:00 08/14/24 02:00 08/14/24 00:00 08/14/24 00:09 08/14/24 00:09
CT Intake/Output/Weight
08/13/24 08/13/24 08/14/24
06:59 18:59 06:59
Intake Total 400 / 880 480 / 880
Output Total 1300 / 3825 1400 / 2400 1000 / 2400
Balance -1300 / -3805 -1000 / -1520 -520 / -1520
SaO2: 93
Physical Exam
-
General: Awake and AOx3
Cardiovascular: Regular rate & rhythm, No Murmurs and No Rub
Respiratory: Decreased Breath Sounds
Sternum: Stable
Incision: Clean and Intact
Extremities: Other (trace edema, TEDs on b/l)
Abdomen: soft, nontender, nondistended, + bowel sounds
Data Reviewed
-
Lab Results: Results Reviewed
Medications: Active Meds Reviewed
Chest X-Ray: Report Reviewed and Image Reviewed
ECG: Report Reviewed and Image Reviewed
--- NOTE | 2024-08-14 07:00 | PTCARENOTE ---
Assumed care of patient from material handler 1st shift RUPAL. MORGAN x 3. Denies pain at present. SR on monitor. Room air. Abdomen soft and non tender. Russo draining clear yellow urine. Trace lower leg edema appreciated. Pulses palpable. Gaurav Stockings placed
to bilateral legs. Resting in chair at present VSS.
--- NOTE | 2024-08-14 07:03 | PTCARENOTE ---
while ambulating to chair, pt had syncopal episode. assisted into chair, laid back, put legs up, pt came to quickly. BP stable. pt c/o dizziness and lightheadedness. CTPA notified
[2024-08-14] MEDS: TYLENOL PO (07:28)
[2024-08-14] MEDS: PROTONIX 40 MG PO (08:35)
[2024-08-14] MEDS: THERAGRAN 1 TABLET PO (08:35)
[2024-08-14] MEDS: NEURONTIN 100 MG PO ×3 (08:35→20:40)
[2024-08-14] MEDS: LOW STRENGTH ASPIRIN 81 MG PO (08:35)
[2024-08-14] MEDS: SENOKOT-S PO (08:36)
[2024-08-14] MEDS: LIDOCAINE 4% PATCH TOPICAL (08:36)
[2024-08-14] MEDS: MAGNESIUM OXIDE PO (08:36)
[2024-08-14] MEDS: PACERONE 400 MG PO (08:37)
--- NOTE | 2024-08-14 08:41 | W.PN.CARDCBS ---
Today's Communication / Plan
-
Monitor BP
Midodrine; hold Flomax
Beta-elia when able
Monitor on telemetry
PT OT
Impression / Plan
-
PCP: Romy Anderson PA-C
Otr Flatbed Driver: Dr. Perry Sood
Impression:
Severe symptomatic aortic stenosis
s/p AVR #27 Inspiris-Dr. Fitch 08/09/2024
Migraine headaches
Basal cell cancer status post excision
Echo 04/26/2024: EF 60 to 65%. Normal regional wall motion. Mild MR. Mildly dilated left atrium (42-48 mL per M2) severe aortic stenosis with peak/mean gradient 92/60 mmHg, [place] 0.8 cm�. Mild to moderate AI.
Cardiac catheterization 07/05/2024: Nonobstructive coronary artery disease
Plan:
-s/p AVR #[address] Fitch 08/09/2024
-had urinary retention overnight and farnsworth placed; remains in place; flomax held due to 08/14/24 AM near syncope/syncope
-BP appears to be improving with midodrine, stable overnight. continue KIT stockings. BB remains on hold; symptomatic improvement with position changes
-reported transient blurry vision, resolved. follow
-hgb 8.7 -> 8.9, stable
-in SR on review of tele overnight. continue amiodarone
-continue post op care, OOB/IS, cardiac rehab
-d/w nursing, CTSx TECHNICIAN SUPPORT ENGINEER
HPI:
69-year-old male with a history of bicuspid aortic valve with severe symptomatic aortic stenosis, migraines who underwent cardiac catheterization June 2024 which demonstrated nonobstructive coronary artery disease. Catheterization confirmed
severe aortic stenosis. He was admitted 08/09/2024 for elective SAVR with Dr. Fitch. Cardiology being asked to see patient for postoperative managementnt.
Progress Note - Otr Flatbed Driver
Subjective
Date of Service: August 14, 2024
Patient seen and examined. No acute events overnight. This AM, patient standing on scale became LH/Dizzy, sat down and experienced near syncope/syncope witnessed by staff. Tele SR no arrhythmia seen. Patient had been given flomax which may have
contributed. Currently, resting comfortably in chair, notes no LH, dizziness; reports some decreased appetite. NO cp, sob, palpitations,or weakness.
Objective
Labs:
08/14/24 04:36
08/14/24 04:36
Labs
Hgb 8.9 g/dL (13.0-18.0) L 08/14/24 04:36
Hct 24.9 % (39.0-52.0) L 08/14/24 04:36
Plt Count 242 10^3/uL (130-400) 08/14/24 04:36
PT 15.2 Sec (11.4-14.6) H 08/09/24 19:55
INR 1.22 08/09/24 19:55
APTT 30.0 Sec (23.4-35.0) 08/09/24 12:03
Sodium 137 mmol/L (135-145) 08/14/24 04:36
Potassium 4.5 mmol/L (3.5-5.1) 08/14/24 04:36
BUN 20 mg/dl (9-20) 08/14/24 04:36
Creatinine 0.9 mg/dL (0.7-1.3) 08/14/24 04:36
Glucose 118 mg/dl (70-99) H 08/14/24 04:36
Vital Signs and I&O:
Vital Signs
Temp Pulse Resp BP Pulse Ox
97.9 F 59 14 115/69 93
08/14/24 04:00 08/14/24 07:00 08/14/24 04:00 08/14/24 06:43 08/14/24 05:31
Vital Signs
Temp Pulse Resp BP Pulse Ox
97.9 F 59 14 115/69 93
08/14/24 04:00 08/14/24 07:00 08/14/24 04:00 08/14/24 06:43 08/14/24 05:31
Intake & Output
08/12/24 08/13/24 08/14/24 08/15/24
06:59 06:59 06:59 06:59
Intake Total 2059 880 / 880
Output Total 2375 / 2375 3825 / 3825 2400 / 2400 500 / 500
Balance -315 / -315 -3805 / -3805 -1520 / -1520 -500 / -500
Physical Exam
Physical Exam
GEN: No distress, awake, alert, oriented x3. sitting in chair
HEENT: supple, anicteric, mmm, eomi
LUNGS: CTA B/L, no wheezes/rales
CV: Reg, S1/S2, no murmur
ABD: soft, BS+, NT/ND
EXT: No cyanosis, clubbing. trace edema of B/L LE
NEURO: Gross non-focal
SKIN: Warm, pink, dry. No rash. Sternotomy dressing c/d/i.
[2024-08-14] MEDS: NSS IV (10:48)
[2024-08-14] MEDS: ProAmatine 10 MG PO ×2 (11:51→16:12)
--- NOTE | 2024-08-14 12:00 | PTCARENOTE ---
Resting in chair . Feels worn out today but denies complaint. VSS. Assessment otherwise unchanged from prior.
[2024-08-14] MEDS: TYLENOL 1000 MG PO ×2 (16:10→20:40)
--- NOTE | 2024-08-14 17:02 | PTCARENOTE ---
Ambulated without incident with RN for approx 100 feet. denies pain at present. VSS. Assessmeny otherwise unchanged from prior
--- NOTE | 2024-08-14 20:00 | PTCARENOTE ---
assumed care of patient @ 1900. received pt sitting in chair, AOx3. SR, VSS. walked to IVU waiting room and back with steady gait. RA. Belly soft, normoactive. farnsworth with clear yellow urine. Surgical sites CDI. See worklist for full assessment and
interventions. resting comfortably with call martinez within reach .
[2024-08-14] MEDS: SENOKOT-S 1 TABLET PO (20:40)
[2024-08-14] MEDS: MAGNESIUM OXIDE 500 MG PO (20:40)
[2024-08-15] VITALS (9 sets, daily range): BP systolic 99–118; BP diastolic 39–78; BMI 25.1
--- NOTE | 2024-08-15 00:16 | PTCARENOTE ---
farnsworth catheter removed per LOUIS Davidson
[2024-08-15] MEDS: ProAmatine 10 MG PO ×3 (05:05→16:27)
[2024-08-15] MEDS: TYLENOL 1000 MG PO ×3 (05:05→22:11)
[2024-08-15 05:22] LABS: Hematocrit 27.2 % (39.0-52.0); Hemoglobin 9.4 g/dL (13.0-18.0); Mean Corp Hgb Conc. 34.6 g/dL (33.0-37.0); Mean Corpuscular Hgb 30.1 pg (27.0-31.0); Mean Corpuscular Volume 87.2 fL (80.0-94.0); Mean Platelet Volume 8.9 fL (7.4-10.4); Platelet Count 284 10^3/uL (130-400); Red Blood Cell Count 3.12 10^6/uL (4.70-6.10); Red Cell Dist. Width 13.1 % (11.5-14.5); White Blood Cell Count 5.8 10^3/uL (4.8-10.8)
--- NOTE | 2024-08-15 05:23 | W.PN.CT ---
Addendum entered and electronically signed by Osman Fitch MD 08/15/24 09:16:
I saw and examined the patient.
The PA's note was reviewed and I agree with the note.
Comment:
POD#6
Urology consulted for urinary retention - unable to use flomax secondary to orthostasis. May require farnsworth on D/C
Continue midodrine
OOB/IS/ambulate
D/C planning for hopefully tomorrow
Original Note:
Today's Communication / Plan
-
-pod #6
-no issues overnight
-Farnsworth was dcd at midnight. UO 900/2350 by Farnsworth. Waiting to void. Follow bladder scans
-continue Midodrine 10 tid
-Flomax, Amio, BB dcd d/t hypotension/orthostasis
-Encourage use of IS
-OOB into chair/Ambulate as tolerated
Assessment / Plan
-
Assessment:
-S/P Median sternotomy/AVR (#27 Inspiris), by Dr. Fitch, 08/09/24, pod#6
-Severe /bicuspid aortic valve
-Moderate AI
-Mild MR/TR
-LVEF 60-65%, per TTE 04/26/24 and intraop BOLA
-Incidental finding of b/l multiple thyroid nodules
-Migraines
-Seasonal allergies
-Basal cell ca on left eye s/p excision and cauterization
-Acute postop blood loss/Anemia (stable)
-Acute postop coagulopathy (transfused 2u FFPs and 1{5pk} plts)
-Acute postop atelectasis
-Acute postop hypovolemia with subsequent hypervolemia
-Acute postop hypotension/orthostasis
-Acute postop urinary retention, requiring several straight caths, Farnsworth re-inserted on 08/12 and dcd 08/14
Discussed patient care with: Nursing and Care Team
Subjective
Procedure
S/P Median sternotomy/AVR (#27 Inspiris), by Dr. Fitch, 08/09/24
-
Date of Service: August 15, 2024
Objective Data
-
Lab Results
08/14/24 04:36
08/14/24 04:36
PT 15.2 Sec (11.4-14.6) H 08/09/24 19:55
INR 1.22 08/09/24 19:55
APTT 30.0 Sec (23.4-35.0) 08/09/24 12:03
Vital Signs
Vital Signs
Temp Pulse Resp BP Pulse Ox
98.1 F 64 16 106/67 98
08/14/24 19:25 08/15/24 04:00 08/15/24 00:00 08/15/24 00:11 08/15/24 00:00
CT Intake/Output/Weight
08/14/24 08/14/24 08/15/24
06:59 18:59 06:59
Intake Total 480 / 880 730 / 730
Output Total 1000 / 2400 1450 / 2350 900 / 2350
Balance -520 / -1520 -720 / -1620 -900 / -1620
SaO2: 98
Physical Exam
-
General: Awake and AOx3
Cardiovascular: Regular rate & rhythm
Respiratory: Decreased Breath Sounds
Sternum: Stable
Incision: Clean, Dry and Intact
Extremities: Other (TEDs on, trace edema b/l)
Data Reviewed
-
Lab Results: Results Reviewed
Medications: Active Meds Reviewed
Chest X-Ray: Report Reviewed and Image Reviewed
ECG: Report Reviewed and Image Reviewed
[2024-08-15 05:38] LABS: Blood Urea Nitrogen 22 mg/dl (9-20); Calcium 8.4 mg/dl (8.4-10.2); Carbon Dioxide 25 mmol/L (22-30); Chloride 105 mmol/L (98-107); Estimated Creatinine Clearance 73 ml/min; Glucose 108 mg/dl (70-99); Potassium 4.6 mmol/L (3.5-5.1); Sodium 139 mmol/L (135-145); eGFR > 60.00
--- NOTE | 2024-08-15 07:30 | PTCARENOTE ---
Assumed care of patient from steward/stewardess night RUPAL. MORGAN x 3 . SR on monitor. Room air 95%. Denies pain at present. Attempting to void in urinal, with some success, but unable to empty bladder. Awaiting urology. Plan for day discussed.
[2024-08-15] MEDS: MAGNESIUM OXIDE 500 MG PO ×2 (07:55→20:07)
[2024-08-15] MEDS: LIDOCAINE 4% PATCH TOPICAL (07:55)
[2024-08-15] MEDS: SENOKOT-S 1 TABLET PO ×2 (07:55→20:07)
[2024-08-15] MEDS: THERAGRAN 1 TABLET PO (07:55)
[2024-08-15] MEDS: LOW STRENGTH ASPIRIN 81 MG PO (07:55)
[2024-08-15] MEDS: PROTONIX 40 MG PO (07:55)
[2024-08-15] MEDS: NEURONTIN 100 MG PO ×3 (07:55→22:11)
--- NOTE | 2024-08-15 10:07 | PTCARENOTE ---
Pt unable to sufficiently void despite multiple attempts this am. Bladder scanned for [address] PA notified, order obtained to place farnsworth cath. 16 Fr farnsworth cath placed w/o issue. Pt tolerated.
[2024-08-15] MEDS: NSS IV (11:27)
--- NOTE | 2024-08-15 11:27 | PTCARENOTE ---
Pt sitting up in chair after 2 view chest x ray. VSS. States this is the best he has felt all week. Denies pain. Russo draining clear yellow urine. Assessment otherwise unchanged from prior.
--- NOTE | 2024-08-15 16:00 | PTCARENOTE ---
Ambulated entire loop with RN, Gait steady, denies dizziness. Better spirits today. Denies complaint. VSS. Assessment otherwise unchanged from prior.
--- NOTE | 2024-08-15 20:10 | PTCARENOTE ---
Assumed care of the patient at 1900. Patient AOx3, pleasant, lying in bed. NSR on the monitor, HR 60's. BP WNL, no present complaints of dizziness with position changes. DP/radial pulses palpable. SpO2 96% on RA, lungs dim at the bases. BS present,
LBM today per patient, abdomen SNT. Russo catheter present draining clear, yellow urine. Midsternal chest incision with aquacell CDI, old drainage; CT sites w/ sutures CDI, R ibarra bruise healing; R forearm IV INT. Call martinez within reach, discussed
POC, patient in agreement, assessment of needs ongoing.
[2024-08-16] VITALS (28 sets, daily range): BP systolic 89–138; BP diastolic 44–99; PULSE 67; O2SAT 98–99; BMI 24.7
--- NOTE | 2024-08-16 | PTCARENOTE ---
Assessment unchanged, patient sleeping comfortably in bed between care. Call martinez within reach. No further needs expressed at this time.
--- NOTE | 2024-08-16 04:30 | PTCARENOTE ---
No change in assessment, patient arose to voice, VSS, no acute issues. Sleeping between care.
--- NOTE | 2024-08-16 04:57 | W.PN.CT ---
Today's Communication / Plan
-
-pod #7
-no issues overnight
-Farnsworth was dcd then reinserted yesterday. unable to tolerate flomax as below. may need farnsworth on DC
-continue Midodrine 10 tid, asa, PPI, pain mgmt
-Flomax, Amio, BB dcd d/t hypotension/orthostasis
-Encourage use of IS
-OOB into chair/Ambulate as tolerated
-DC planning, possibly today
Assessment / Plan
-
Assessment:
-S/P Median sternotomy/AVR (#27 Inspiris), by Dr. Fitch, 08/09/24, pod#7
-Severe /bicuspid aortic valve
-Moderate AI
-Mild MR/TR
-LVEF 60-65%, per TTE 04/26/24 and intraop BOLA
-Incidental finding of b/l multiple thyroid nodules
-Migraines
-Seasonal allergies
-Basal cell ca on left eye s/p excision and cauterization
-Acute postop blood loss/Anemia (stable)
-Acute postop coagulopathy (transfused 2u FFPs and 1{5pk} plts)
-Acute postop atelectasis
-Acute postop hypovolemia with subsequent hypervolemia
-Acute postop hypotension/orthostasis
-Acute postop urinary retention, requiring several straight caths, Farnsworth re-inserted on 08/12 and dcd 08/14
Subjective
Procedure
S/P Median sternotomy/AVR (#27 Inspiris), by Dr. Fitch, 08/09/24
-
Date of Service: August 16, 2024
Objective Data
-
Lab Results
08/15/24 05:16
08/15/24 05:16
PT 15.2 Sec (11.4-14.6) H 08/09/24 19:55
INR 1.22 08/09/24 19:55
APTT 30.0 Sec (23.4-35.0) 08/09/24 12:03
Vital Signs
Vital Signs
Temp Pulse Resp BP Pulse Ox
98.5 F 69 14 121/70 95
08/16/24 03:59 08/16/24 03:59 08/16/24 03:59 08/16/24 03:59 08/16/24 03:59
CT Intake/Output/Weight
08/15/24 08/15/24 08/16/24
06:59 18:59 06:59
Intake Total 240 / 240
Output Total 975 / 2425 950 / 1200 250 / 1200
Balance -975 / -1695 -710 / -960 -250 / -960
SaO2: 95
Physical Exam
-
General: Awake, Oriented and AOx3
Cardiovascular: Regular rate & rhythm, Irregular rate & rhythm, No Murmurs and No Rub
Respiratory: Clear and Equal
Sternum: Stable
Incision: Clean, Dry and Intact
Extremities: Edema +1
Data Reviewed
-
Lab Results: Results Reviewed
Medications: Active Meds Reviewed
Chest X-Ray: Report Reviewed
ECG: Report Reviewed
[2024-08-16] MEDS: TYLENOL 1000 MG PO ×3 (05:45→22:05)
[2024-08-16] MEDS: ProAmatine 10 MG PO ×3 (05:45→16:48)
--- NOTE | 2024-08-16 08:15 | PTCARENOTE ---
Assumed care of patient. Pt assisted to the side of the bed. Pt states he feels 'slightly lightheaded'. See vital signs for BP documentation. After waiting several minutes, pt assisted to stand and walked to the chair. Pt stated he felt 'slightly
lightheaded' again. Resolved after sitting in the chair for a while. Pt alert and oriented x4. Denies pain, shortness of breath, and nausea. TALBOT with equal strength throughout. SR with 1st degree AVB on tele with rates in the 60s. BP lying 115/73.
Bilateral radial and DP pulses palpable. No edema noted. Teds in place. Epicardial v-wire insulated. POX 98% on RA. Lungs clear throughout. No cough noted. IS encouraged-2000ml achieved. Abdomen soft, nontender. +BS. +BM yesterday. Tolerating diet.
Russo catheter intact draining adequate amounts of clear yellow urine. Sternal incision covered with Aquacel-CDI. Old chest tube sites covered, dressing CDI. Right wrist PIV intact. See MAR for medication administration. See worklist for complete
nursing assessment. Plan of care reviewed and pt in agreement.
[2024-08-16] MEDS: LIDOCAINE 4% PATCH 1 PATCH TOPICAL (09:36)
[2024-08-16] MEDS: FLUSH (NSS) 1 FLUSH IV (09:36)
[2024-08-16] MEDS: MAGNESIUM OXIDE 500 MG PO ×2 (09:37→19:42)
[2024-08-16] MEDS: PROTONIX 40 MG PO (09:37)
[2024-08-16] MEDS: THERAGRAN 1 TABLET PO (09:37)
[2024-08-16] MEDS: LOW STRENGTH ASPIRIN 81 MG PO (09:37)
[2024-08-16] MEDS: NEURONTIN 100 MG PO ×3 (09:37→22:05)
[2024-08-16] MEDS: SENOKOT-S 1 TABLET PO ×2 (09:38→19:42)
[2024-08-16] MEDS: NSS IV (09:59)
--- NOTE | 2024-08-16 10:30 | CM ---
Reviewed chart. Met with Mr. Huffman to review discharge plans. He states he is feeling okay. He states he ambulated yesterday. We reviewed a home visit by the Transitional Care Nurse. He states he may need to go home with the farnsworth and follow-up
with urology. Prior to admission he resides with his spouse in a two story home with four steps to enter. He has a full flight of steps to get to bedroom. He has a full bathroom on each floor. His spouse works from the home and will be able to
assist in his care if needed. Medical work-up in progress. The discharge plan is to return home with his spouse and a home visit by the Transitional Care Nurse when medically stable.
--- NOTE | 2024-08-16 10:53 | W.PN.CARDCBS ---
Addendum entered and electronically signed by Elan Gilmore MD 08/16/24 12:47:
Now postop day 7 following AVR. Physically, patient feeling well but orthostatic, confusion after most recent episode of dizziness, though now comfortable
PMH/PSH/FH/SH: Reviewed
Allergies: Meds: ROS: All reviewed
blood pressure standing is in the 90s, greater than 110 in [place] chair, pulse 60s, no acute distress, lungs relatively clear, chest incision intact, regular rate and rhythm with soft systolic murmur, JVD okay abdomen benign, no significant edema
No labs today
Impression:
See below
Plan:
From a surgical standpoint, he is doing well.
His only active issue at present is orthostasis. Would continue midodrine.
LV function is normal, if needed could consider Florinef.
May need to consider thigh-high compression stockings, abdominal binder, etc.
Original Note:
Today's Communication / Plan
-
Follow BP
Continue post op care
Continue midodrine, compression stockings
Impression / Plan
-
PCP: Romy Anderson PA-C
Ball Shagger: Dr. Perry Sood
Impression:
Severe symptomatic aortic stenosis
s/p AVR #27 Inspiris w/Dr. Fitch 08/09/2024
Migraine headaches
Basal cell cancer status post excision
Hypotension
Urinary retention post-op
Echo 04/26/2024: EF 60 to 65%. Normal regional wall motion. Mild MR. Mildly dilated left atrium (42-48 mL per M2) severe aortic stenosis with peak/mean gradient 92/60 mmHg, [place] 0.8 cm�. Mild to moderate AI.
Cardiac catheterization 07/05/2024: Nonobstructive coronary artery disease
Plan:
-s/p AVR #[address] Fitch 08/09/2024
-Continues w/ hypotension/orthostasis. Noted to have episode this AM while walking in halls where he became dizzy and needed to sit down. Upon returning to his room, BP in the 90s systolic. Then a few minutes later had confusion, not remembering
walking in the hallway or why he was in the hospital. Resolved, and now AAOx3. No focal deficits on exam. Suspect episode related to hypotension. Will continue to follow for now.
-Continue midodrine 10mg TID, compression stockings. BB and Flomax remain on hold.
-Urinary retention noted. Russo in place.
-Remains in SR on review of telemetry.
-Continue post op care. Continue aspirin.
HPI:
69-year-old male with a history of bicuspid aortic valve with severe symptomatic aortic stenosis, migraines who underwent cardiac catheterization June 2024 which demonstrated nonobstructive coronary artery disease. Catheterization confirmed
severe aortic stenosis. He was admitted 08/09/2024 for elective SAVR with Dr. Fitch. Cardiology being asked to see patient for postoperative managementnt.
Progress Note - Ball Shagger
Subjective
Date of Service: August 16, 2024
Improved following episode of confusion this AM.
Objective
Labs:
08/15/24 05:16
08/15/24 05:16
Labs
Hgb 9.4 g/dL (13.0-18.0) L 08/15/24 05:16
Hct 27.2 % (39.0-52.0) L 08/15/24 05:16
Plt Count 284 10^3/uL (130-400) 08/15/24 05:16
PT 15.2 Sec (11.4-14.6) H 08/09/24 19:55
INR 1.22 08/09/24 19:55
APTT 30.0 Sec (23.4-35.0) 08/09/24 12:03
Sodium 139 mmol/L (135-145) 08/15/24 05:16
Potassium 4.6 mmol/L (3.5-5.1) 08/15/24 05:16
BUN 22 mg/dl (9-20) H 08/15/24 05:16
Creatinine 0.9 mg/dL (0.7-1.3) 08/15/24 05:16
Glucose 108 mg/dl (70-99) H 08/15/24 05:16
Vital Signs and I&O:
Vital Signs
Temp Pulse Resp BP Pulse Ox
97.9 F 66 16 118/71 98
08/16/24 08:00 08/16/24 09:37 08/16/24 08:00 08/16/24 09:37 08/16/24 08:00
Vital Signs
Temp Pulse Resp BP Pulse Ox
97.9 F 66 16 118/71 98
08/16/24 08:00 08/16/24 09:37 08/16/24 08:00 08/16/24 09:37 08/16/24 08:00
Intake & Output
08/14/24 08/15/24 08/16/24 08/17/24
06:59 06:59 06:59 06:59
Intake Total 880 / 880 730 / 730 240 / 240 240 / 240
Output Total 2400 / 2400 2425 / 2425 1200 / 1200 1300 / 1300
Balance -1520 / -1520 -1695 / -1695 -960 / -960 -1060 / -1060
Physical Exam
Physical Exam
GEN: No distress, awake, alert, oriented x3. sitting in chair
HEENT: supple, anicteric, mmm, eomi
LUNGS: CTA B/L, no wheezes/rales
CV: Reg, S1/S2, no murmur
EXT: No cyanosis, clubbing. trace edema of B/L LE
NEURO: Gross non-focal
SKIN: Warm, pink, dry. No rash.
--- NOTE | 2024-08-16 11:10 | PTCARENOTE ---
Pt rang call martinez stating he was confused and couldn't remember what he was doing. BP 127/82. Pt oriented to self, place, and year, needed encouragement for reason of hospitalization. No focal deficit noted. CT [employer] MANAGER notified and at bedside. No new
orders. Pt resting comfortably in the chair. states his memory is returning slowly. He can remember what he ate for breakfast and the reason for hospitalization.
[2024-08-16 11:15] LABS: Glucose - Point of Care 99 mg/dl (70-99)
--- NOTE | 2024-08-16 11:45 | PTCARENOTE ---
Pt's updated on event.
--- NOTE | 2024-08-16 15:45 | PTCARENOTE ---
Assumed care of patient, vitals taken and stable, educated patient on medication administration for the rest of the shift and plan of care. Patient does not feel confused anymore but endorsed feeling fatigued. Pt oob to chair, brushed teeth, farnsworth
draining yellow urine.
[2024-08-16] MEDS: SOLU-CORTEF 150 MG IV (16:54)
--- NOTE | 2024-08-16 20:00 | PTCARENOTE ---
Assumed care of the patient at 1900. Patient resting in bed, no acute complaints reported. Patient's at bedside. Patient AOx3, neuro WNL. HRR on monitor, rate in 60's, palpable pulses, no edema noted. Lungs diminished at the bases, on RA. +BS,
patient reported feeling like he needed to have a BM, fall risk from orthostasis reinforced, encouraged the patient to call when he felt he is ready. Russo catheter present, urine clear, yellow. Midsternal chest incision CDI, CT dressing CDI R ibarra
bruise present, healing. R forearm INT, patent. Discussed POC, call martinez within reach, assessment of needs going.
[2024-08-16 20:26] LABS: Cortisol, Random 10.7 ug/dl
[2024-08-16] MEDS: CALCIUM GLUCONATE 100 IV ×2 (20:26→20:55)
[2024-08-17] VITALS (25 sets, daily range): BP systolic 80–136; BP diastolic 54–95; PULSE 68; O2SAT 71–98; BMI 24.2
--- NOTE | 2024-08-17 00:12 | PTCARENOTE ---
Patient sleeping, arose to voice. Assessment unchanged, BP soft, no reports of dizziness, lightheadedness, resting comfortably in bed. Call martinez within reach.
--- NOTE | 2024-08-17 02:00 | W.PN.CT ---
Today's Communication / Plan
-
Plan:
-No major issues overnight. Hemodynamically and neurologically intact
-No orthostasis this AM
-Echo yesterday 08/16 was technically poor and limited, unremarkable. Poorly visualized bioprosthetic aortic valve with trace AI, PG/MG of 13/7 mmHg
-Midodrine transitioned to PRN
-Farnsworth catheter reinserted for the second time on 08/15. D/C farnsworth catheter with trial vs home with farnsworth-will need Urology consult if home with farnsworth
-Flomax, Amio, BB dcd d/t hypotension/orthostasis
-Encourage use of IS
-OOB into chair/Ambulate as tolerated
-Home today
Assessment / Plan
-
Assessment:
-S/P Median sternotomy/AVR (#27 Inspiris), by Dr. Fitch, 08/09/24, pod#8
-Severe /bicuspid aortic valve
-Moderate AI
-Mild MR/TR
-LVEF 60-65%, per TTE 04/26/24 and intraop BOLA
-Incidental finding of b/l multiple thyroid nodules
-Migraines
-Seasonal allergies
-Basal cell ca on left eye s/p excision and cauterization
-Acute postop blood loss/Anemia (stable)
-Acute postop coagulopathy (transfused 2u FFPs and 1{5pk} plts)
-Acute postop atelectasis
-Acute postop hypovolemia with subsequent hypervolemia
-Acute postop hypotension/orthostasis
-Acute postop urinary retention, requiring several straight caths, Farnsworth re-inserted on 08/12 and dcd 08/14, re-inserted again 08/15
Discussed patient care with: Cardiology, Nursing, Respiratory Therapy, Pharmacy and Care Team
Subjective
Procedure
S/P Median sternotomy/AVR (#27 Inspiris), by Dr. Fitch, 08/09/24
-
Date of Service: August 17, 2024
Pt c/o mild incisional pain, otherwise feels well
Objective Data
-
PT 15.2 Sec (11.4-14.6) H 08/09/24 19:55
INR 1.22 08/09/24 19:55
APTT 30.0 Sec (23.4-35.0) 08/09/24 12:03
Vital Signs
Vital Signs
Temp Pulse Resp BP Pulse Ox
98.3 F 62 16 99/63 95
08/17/24 00:09 08/17/24 00:00 08/17/24 00:09 08/17/24 00:00 08/17/24 00:09
CT Intake/Output/Weight
08/16/24 08/16/24 08/17/24
06:59 18:59 06:59
Intake Total 480 / 580 100 / 580
Output Total 250 / 1200 2500 / 2500
Balance -250 / -960 -2020 / -1920 100 / -1920
SaO2: 95 (RA)
Physical Exam
-
General: Awake, Oriented and AOx3
Cardiovascular: Regular rate & rhythm, No Murmurs, No Rub and No Gallop
Respiratory: Decreased Breath Sounds (at bases, otherwise clear)
Sternum: Stable
Incision: Clean, Dry, Intact and Dressing Intact
Extremities: No Edema
Data Reviewed
-
Lab Results: Results Reviewed
Medications: Active Meds Reviewed
Chest X-Ray: Report Reviewed and Image Reviewed
ECG: Report Reviewed and Image Reviewed
[2024-08-17 04:29] LABS: Ionized Calcium 1.21 mMOL/L (1.15-1.33)
[2024-08-17 04:32] LABS: Hematocrit 28.9 % (39.0-52.0); Mean Corp Hgb Conc. 34.6 g/dL (33.0-37.0); Mean Corpuscular Hgb 30.1 pg (27.0-31.0); Mean Platelet Volume 8.6 fL (7.4-10.4); Platelet Count 361 10^3/uL (130-400); Red Blood Cell Count 3.32 10^6/uL (4.70-6.10); White Blood Cell Count 8.1 10^3/uL (4.8-10.8)
[2024-08-17 04:54] LABS: Blood Urea Nitrogen 23 mg/dl (9-20); Carbon Dioxide 26 mmol/L (22-30); Chloride 103 mmol/L (98-107); Estimated Creatinine Clearance 65 ml/min; Glucose 110 mg/dl (70-99); Magnesium 2.3 mg/dl (1.6-2.3); Potassium 4.7 mmol/L (3.5-5.1); Sodium 137 mmol/L (135-145); eGFR > 60.00
[2024-08-17] MEDS: CALCIUM GLUCONATE 100 IV (05:17)
[2024-08-17] MEDS: TYLENOL 1000 MG PO ×3 (05:17→22:20)
[2024-08-17] MEDS: PROTONIX 40 MG PO (08:11)
[2024-08-17] MEDS: NEURONTIN 100 MG PO ×3 (08:11→22:20)
[2024-08-17] MEDS: LOW STRENGTH ASPIRIN 81 MG PO (08:11)
[2024-08-17] MEDS: MAGNESIUM OXIDE 500 MG PO ×2 (08:11→20:26)
[2024-08-17] MEDS: THERAGRAN 1 TABLET PO (08:11)
[2024-08-17] MEDS: NSS IV (08:12)
[2024-08-17] MEDS: SENOKOT-S 1 TABLET PO (08:12)
[2024-08-17] MEDS: LIDOCAINE 4% PATCH TOPICAL (08:12)
--- NOTE | 2024-08-17 08:45 | PTCARENOTE ---
Assumed care of patient at 0700. Pt is awake, alert, and oriented. No complaints of pain at this time. Pt remains SR with first degree AV block. HR 60's-70's. Laying BP 111/71 MAP 84, sitting BP 105/69 MAP 82. Pulse oximetry 98% on room air. Pt
tolerating PO diet. Russo catheter in place draining yellow urine. Midsternal incision approximated and RADIOLOGY RN. Pt assisted OOB to chair, pt reported slight dizziness able to get to chair without issue.
[2024-08-17] MEDS: ProAmatine 2.5 MG PO (10:03)
--- NOTE | 2024-08-17 10:10 | PTCARENOTE ---
Pt sitting up in chair. BP 80/56 MAP 65. Pt reports feeling dizzy, diaphoretic. Ordered Midodrine administered. Pt reclined in chair, BP 101/67 MAP 78.
--- NOTE | 2024-08-17 11:48 | CM ---
Reviewed chart. Met with Mr. Huffman to review discharge plans. He states he was feeling dizzy this a.m. Prior to admission he resides with his spouse in a two story home with four steps to enter. He has a full flight of steps to get to bedroom.
He has a full bathroom on each floor. Prior to admission he was independent with ambulation and adls. He does not have any DME in the home. He has a prescription plan. His spouse works from home and will be available to assist in his care if
needed. Medical work-up in progress. The discharge plan is to return home with his spouse and a home visit by the Transitional Care Nurse when medically stable.
--- NOTE | 2024-08-17 12:49 | PTCARENOTE ---
Pt ambulated with cardiac rehab and completed steps. Pt tolerated well. Now back in bed. Remains SR with HR 60's-70's. BP 116/62 MAP 78. Pulse oximetry 98% on room air.
--- NOTE | 2024-08-17 13:08 | W.PN.CARDCBS ---
Today's Communication / Plan
-
Stable cardiology status for discharge
Impression / Plan
-
PCP: Romy Anderson PA-C
Bilingual Case Manager: Dr. Perry Sood
Impression:
Severe symptomatic aortic stenosis
s/p AVR #27 Inspiris w/Dr. Fitch 08/09/2024
Orthostasis
Migraine headaches
Basal cell cancer status post excision
Urinary retention post-op
Echo 04/26/2024: EF 60 to 65%. Normal regional wall motion. Mild MR. Mildly dilated left atrium (42-48 mL per M2) severe aortic stenosis with peak/mean gradient 92/60 mmHg, [place] 0.8 cm�. Mild to moderate AI.
Cardiac catheterization 07/05/2024: Nonobstructive coronary artery disease
Plan:
Still with some orthostasis but seems to be improved
Stable cardiology status for discharge
Urinary retention noted. Russo in place.
Remains in SR on review of telemetry.
Discussed with CT surgery PA
HPI:
69-year-old male with a history of bicuspid aortic valve with severe symptomatic aortic stenosis, migraines who underwent cardiac catheterization June 2024 which demonstrated nonobstructive coronary artery disease. Catheterization confirmed
severe aortic stenosis. He was admitted 08/09/2024 for elective SAVR with Dr. Fitch. Cardiology being asked to see patient for postoperative managementnt.
Progress Note - Bilingual Case Manager
Subjective
Date of Service: August 17, 2024
No complaints
Objective
Labs:
08/17/24 04:13
08/17/24 04:13
Labs
Hgb 10.0 g/dL (13.0-18.0) L 08/17/24 04:13
Hct 28.9 % (39.0-52.0) L 08/17/24 04:13
Plt Count 361 10^3/uL (130-400) D 08/17/24 04:13
PT 15.2 Sec (11.4-14.6) H 08/09/24 19:55
INR 1.22 08/09/24 19:55
APTT 30.0 Sec (23.4-35.0) 08/09/24 12:03
Sodium 137 mmol/L (135-145) 08/17/24 04:13
Potassium 4.7 mmol/L (3.5-5.1) 08/17/24 04:13
BUN 23 mg/dl (9-20) H 08/17/24 04:13
Creatinine 1.0 mg/dL (0.7-1.3) 08/17/24 04:13
Glucose 110 mg/dl (70-99) H 08/17/24 04:13
Vital Signs and I&O:
Vital Signs
Temp Pulse Resp BP Pulse Ox
98.6 F 68 18 116/62 98
08/17/24 12:44 08/17/24 12:44 08/17/24 12:44 08/17/24 12:41 08/17/24 12:44
Vital Signs
Temp Pulse Resp BP Pulse Ox
98.6 F 68 18 116/62 98
08/17/24 12:44 08/17/24 12:44 08/17/24 12:44 08/17/24 12:41 08/17/24 12:44
Intake & Output
08/15/24 08/16/24 08/17/24 08/18/24
06:59 06:59 06:59 06:59
Intake Total 730 / 730 240 / 240 1160 / 1160
Output Total 2425 / 2425 1200 / 1200 4050 / 4050 375 / 375
Balance -1695 / -1695 -960 / -960 -2890 / -2890 -375 / -375
Physical Exam
Physical Exam
General: Well developed, well nourished in NAD.
Neck: Supple, no JVD, HJR, carotids +2 B/L, no bruits bilaterally.
Heart: Non displaced PMI, RRR, no murmurs, No S3, S4, no rubs.
Lungs: Scattered rhonchi
Sternal dressings noted
Extremities: No clubbing, cyanosis or edema bilaterally.
Neuro: Grossly nonfocal, awake, alert and oriented x3.
[2024-08-17] MEDS: ProAmatine 10 MG PO ×2 (14:11→17:05)
--- NOTE | 2024-08-17 16:07 | PTCARENOTE ---
pt VSS, agree w/ previous office secretary. pt ambulated in hallway. farnsworth in place, clear yellow urine. +BM.
[2024-08-17] MEDS: SENOKOT-S PO (18:55)
--- NOTE | 2024-08-17 21:00 | PTCARENOTE ---
Assumed care of pt from dayshift RN. Walking rounds completed. Pt AAOx3. SR w/ 1st degree on the tele monitor. HR 60s. Temporary epicardial v-wire insulated. BP 111/67. Palpable pulses throughout. Trace edema in bilateral hands and LE. Pt on RA. POX
97%. Lung sounds diminished at the base. Deep breathing and IS encouraged. Pt abdomen soft/nontender. +BS. +BM. Russo catheter CDI and draining yellow urine. All surgical sites stable. Right PIVx1 CDI. Pt walked around the unit w/ stand by assist.
See worklist for full nursing assessment and interventions. Call martinez within reach.
[2024-08-18] VITALS (8 sets, daily range): BP systolic 106–135; BP diastolic 63–83; PULSE 79; O2SAT 97–98; BMI 24.3
--- NOTE | 2024-08-18 00:14 | PTCARENOTE ---
Addendum entered by Liliana Long RN 08/18/24 00:16:
Russo catheter clean/dry/intact and draining yellow urine.
Original Note:
No acute change in assessment. Pt remains SR w/ 1st heart block on the tele monitor. HR 60-70s. BP stable. Pt remains on RA. POX 96%. All surgical sites stable. No c/o pain at this time. Pt repositioned in bed. Call martinez within reach.
--- NOTE | 2024-08-18 03:07 | W.PN.CT ---
Today's Communication / Plan
-
-pod #9
-felt better yesterday, walked in hallways and stairs without dizziness. Still had some brief dizziness while sitting in a chair
-continue Midodrine 10 tid
-s/p trial of Hydrocortisone on 08/16. Renin, Aldosterone pending
-s/p Echo 08/16 was technically poor and limited, unremarkable. Poorly visualized bioprosthetic aortic valve with trace AI, PG/MG of 13/7 mmHg, no significant pericardial effusion
-Russo in-place for urinary retention- will need outpatient follow-up with Urology (Dr. bAernathy)
-Flomax, Amio, BB dcd d/t hypotension/orthostasis
-current meds: ASA, Midodrine, Protonix, Neurontin
-labs have been stable, on 08/17: hg 10.0, plat 361, Cr 1.0, iCa 1.21, Mg 2.3, K 4.7
-Encourage use of IS
-OOB into chair/Ambulate as tolerated
Assessment / Plan
-
Assessment:
-S/P Median sternotomy/AVR (#27 Inspiris), by Dr. Fitch, 08/09/24, pod#9
-Severe /bicuspid aortic valve
-Moderate AI
-Mild MR/TR
-LVEF 60-65%, per TTE 04/26/24 and intraop BOLA
-Incidental finding of b/l multiple thyroid nodules
-Migraines
-Seasonal allergies
-Basal cell ca on left eye s/p excision and cauterization
-Acute postop blood loss/Anemia (stable)
-Acute postop coagulopathy (transfused 2u FFPs and 1{5pk} plts)
-Acute postop atelectasis
-Acute postop hypovolemia with subsequent hypervolemia
-Acute postop hypotension/orthostasis
-Acute postop urinary retention, requiring several straight caths, Russo re-inserted on 08/12 and dcd 08/14, re-inserted again 08/15
Discussed patient care with: Nursing and Care Team
Subjective
Procedure
S/P Median sternotomy/AVR (#27 Inspiris), by Dr. Fitch, 08/09/24
-
Date of Service: August 18, 2024
Objective Data
-
Lab Results
08/17/24 04:13
08/17/24 04:13
PT 15.2 Sec (11.4-14.6) H 08/09/24 19:55
INR 1.22 08/09/24 19:55
APTT 30.0 Sec (23.4-35.0) 08/09/24 12:03
Vital Signs
Vital Signs
Temp Pulse Resp BP Pulse Ox
98 F 63 16 114/67 96
08/18/24 00:10 08/18/24 00:10 08/18/24 00:10 08/18/24 00:10 08/18/24 00:10
CT Intake/Output/Weight
08/17/24 08/17/24 08/18/24
06:59 18:59 06:59
Intake Total 680 / 1160
Output Total 1550 / 4050 825 / 1675 850 / 1675
Balance -870 / -2890 -825 / -1675 -850 / -1675
SaO2: 96
Physical Exam
-
General: Awake and AOx3
Cardiovascular: Regular rate & rhythm, No Murmurs and No Rub
Respiratory: Clear
Sternum: Stable
Incision: Clean, Dry and Intact
Extremities: No Edema
Abdomen: soft, nontender, nondistended, + bowel sounds, + BM x3
Data Reviewed
-
Lab Results: Results Reviewed
Medications: Active Meds Reviewed
Chest X-Ray: Report Reviewed and Image Reviewed
ECG: Report Reviewed and Image Reviewed
--- NOTE | 2024-08-18 04:07 | PTCARENOTE ---
No change in assessment. SR w/ 1st degree on the tele monitor. HR 60s. BP stable. Pt remains on RA. POX 97%. Per CTPA no labs ordered for pt in AM. Russo bag CDI and draining yellow urine. All surgical sites stable. Pt repositioned in bed. No c/o
pain at this time. Call martinez within reach.
[2024-08-18] MEDS: ProAmatine 10 MG PO ×2 (06:30→13:31)
[2024-08-18] MEDS: TYLENOL 1000 MG PO (06:30)
--- NOTE | 2024-08-18 08:00 | SUR.PHASEI ---
Resumed care of patient from previous RN. Walking rounds done. AAOx3. SR w/ 1st degree block. HR 70s. v-wire insulated. VSS. + pulses. Trace edema. sao2 97% on RA. diminished at the base. +BS. Russo draining joy urine. All surgical sites stable.
will continue to monitor. for hopeful d/c this afternoon post walk and shower.
[2024-08-18] MEDS: THERAGRAN 1 TABLET PO (09:15)
[2024-08-18] MEDS: PROTONIX 40 MG PO (09:15)
[2024-08-18] MEDS: LIDOCAINE 4% PATCH TOPICAL (09:15)
[2024-08-18] MEDS: NEURONTIN 100 MG PO (09:15)
[2024-08-18] MEDS: NSS IV (09:15)
[2024-08-18] MEDS: LOW STRENGTH ASPIRIN 81 MG PO (09:15)
[2024-08-18] MEDS: MAGNESIUM OXIDE 500 MG PO (09:15)
[2024-08-18] MEDS: SENOKOT-S PO (09:15)
--- NOTE | 2024-08-18 12:03 | W.DCSUMMARY ---
Discharge Summary
Discharge Data
Date of Admission: 08/09/24
Date of Discharge: 08/18/24
Total time spent discharging patient (in min): 40
-
Pending Results: No
Hospital Course
Primary care physician:
Romy Anderson
Outpatient fuel verification technician:
Dr. Sood
Inpatient consultants:
DCA, cellophane tester
Procedures:
1. AVR #27 Inspiris Valve
Primary Diagnosis:
1. Aortic stenosis/bicuspid aortic valve
Secondary Diagnoses:
1. Postoperative orthostatic hypotension requiring midodrine
2. Migraines
3. History of basal cell carcinoma and excision
HPI: 69-year-old male seen in the office by Dr. Fitch presented electively on 08/09 for a aortic valve replacement.
Hospital course: Patient was electively admitted on 08/09 for an AVR with Dr. Fitch. Postoperatively he returned to the CVICU on Levophed and Precedex. He received 2 FFP and 1 pool of platelets, along with 750 mL of lactated Ringer's. Patient
sedation was weaned and was extubated later that night. Overnight patient was weaned off Levophed. On 08/10 postoperative day #1, patient was D lined and he ambulated. He was out of bed with mild lightheadedness. On 08/11 postoperative day #2
patient was found to have orthostatic hypotension and was started on midodrine. Chest tubes were maintained. On 08/12 postoperative day #3, patient was maintained on midodrine and Gaurav stockings. Chest tubes were discontinued. Russo was removed
however patient required straight cathing x 2 and Russo catheter was reinserted. Due to hypotension patient was not started on Flomax. On 08/13 postoperative day #4 patient still complained of orthostatic hypotension that accompanied blurred
vision. Blurry vision resolved after 20 minutes. On 08/14 postoperative day 5, patient had a syncopal episode with orthostasis and midodrine was increased. Russo catheter was removed at midnight. On 08/15 postoperative day #6, patient failed
voiding trial and patient's clinical course was discussed with urology. Dr. Diaz recommended reinserting a indwelling catheter and following up outpatient 1 week after discharge. On 08/16 postoperative day 7, patient was still complaining of
orthostatic hypotension therefore an echocardiogram was done which showed a trace pericardial effusion and a normal EF. He was given 1 dose of 150 mg hydrocortisone IV and cortisol levels were sent for assessment. On 08/17 postoperative day #8
patient had improved blood pressure support on midodrine. On 08/18 postoperative day #9, patient ambulated and did stairs without issue. He was deemed stable to be discharged home on midodrine with follow-up with urology in 1 week.
Home medication changes:
See below
Discharge Plan
-
Patient Disposition: Home (Routine Discharge)
Discharge Diagnosis/Procedures: CABG
Condition: Fair
Diet: Low Cholesterol and 2 Gram Sodium
Activity: No strenuous activity
Driving Restrictions: Not until seen by your Dr
Bathing Restrictions: OK to Shower
Other Services: Cardiac Rehab
Specialty Instructions: Weigh Daily- Call MD for wt gain/loss 3 lbs overnight/5 lbs in 1 week
Activity Restrictions/Additional Instructions:
ACTIVITY:
-No strenuous activity: no heavy lifting, pushing, pulling anything over 15 pounds for one month
-continue to use stairs as tolerated
DRIVING RESTRICTIONS:
-No driving for one month or until approved by your surgeon
WOUND CARE:
-Shower daily. Use soap & water.
-No lotions, creams or powders on incision area.
DIET:
-continue a low fat/low cholesterol diet.
-IF you are diabetic, continue carb controlled diet.
CARDIAC REHAB:
-Please make appointment to start in 5-6 weeks with your local hospital program. (See Cardiac Rehabilitation Discharge Booklet).
SPECIALTY INSTRUCTIONS:
-Weigh yourself daily. Call your physician for any weight gain/loss of 3 lbs overnight or 5 lbs in one week.
-REPORT any clicking noise or uneven appearance of your sternum to your surgeon immediately.
-If you smoke, you are instructed to quit. The [place] smoking hotline phone number is [phone]
Instructions: How to Care for Your Russo Catheter, Male, Aortic Valve Replacement, Transcatheter (DC)
Referrals:
CT Transitional Care Nurse [Outside] - in one to two days
(
The Cardiothoracic Transitional Care Nurse will call you to set up a visit in 1-2 days.)
[facility] [Outside] - 09/16/24 1:00 pm
(Cardiac Rehab Orientation appointment is on09/19/24 () at 1:00 pm
The Cardiac Rehab gym is located on the first floor of the [facility].)
Caryl Sanders PA-C [Specified Professional Personl] - 09/08/24 12:40 pm
Romy Anderson PA-C [Family Provider] - in four to six weeks
(Please make an appointment in four to six weeks.
)
Nicholas Abernathy MD [Active] - (Please call [facility] to be scheduled for a voiding trial (catheter removal) in 7-10 days (week of 08/23) with Dr. Abernathy. )
Osman Fitch MD [Active] - 09/14/24 1:30 pm
Prescriptions:
New
midodrine 5 mg Tablet
10 mg PO TID@0600,1300,1800 Qty: 30 0RF
Continued
Men's 50 Plus Multivitamin 400-20-370 mcg Tablet
2 tab PO DAILY
aspirin 81 mg tablet,delayed release (DR/EC)
81 mg PO DAILY Qty: 1 0RF
cetirizine [Zyrtec] 10 mg Tablet
10 mg PO DAILY
acetaminophen 500 mg Tablet
1,000 mg PO Q6H PRN (Reason: migraines)
Discontinued
diphenhydramine HCl [Benadryl] 25 mg Capsule
25 mg PO HS
Discharge Orders:
Discharge Patient (As Directed); Ordered 08/18/24
Ordered By: Nidia Weeks
Discharge Date and Time
Print Language: CONGOLESE
--- NOTE | 2024-08-18 12:54 | W.PN.CARDCBS ---
Addendum entered and electronically signed by Neri Shaw DO 08/18/24 14:47:
I saw and examined the patient.
The Deportation Officer's note was reviewed and I agree with the note.
Comment:
Plan:
Cont Midodrine for orthostasis and attempt to wean as outpt
Recheck echo as outpt as last echo AVR was poorly visualized. EF was preserved.
Reviewed with CT surgery
Outpt follow up arranged.
Original Note:
Today's Communication / Plan
-
continue midodrine. wean as OP as able
follow BPs
in SR
OP cardiac follow up arranged
for DC today
Impression / Plan
-
PCP: Romy Anderson PA-C
Corrective Therapist: Dr. Perry Sood
Impression:
Severe symptomatic aortic stenosis
s/p AVR #27 Inspiris w/Dr. Fitch 08/09/2024
Orthostasis
Migraine headaches
Basal cell cancer status post excision
Urinary retention post-op
Echo 04/26/2024: EF 60 to 65%. Normal regional wall motion. Mild MR. Mildly dilated left atrium (42-48 mL per M2) severe aortic stenosis with peak/mean gradient 92/60 mmHg, [place] 0.8 cm�. Mild to moderate AI.
Cardiac catheterization 07/05/2024: Nonobstructive coronary artery disease
Plan:
-he reports no dizziness/lightheadedness with ambulation today.
-on midodrine 10mg TID. continue compression stockings. will attempt to wean in OP setting as able as continues to recover post surgically. discussed importance of taking his time with changes in position at home
-OP urology follow up arranged for urinary retention
-remains in SR on tele
-cardiac rehab
-OP cardiac follow up arranged
-planned for DC today
-Discussed with nursing and CT surgery PA/[employer]
HPI:
69-year-old male with a history of bicuspid aortic valve with severe symptomatic aortic stenosis, migraines who underwent cardiac catheterization June 2024 which demonstrated nonobstructive coronary artery disease. Catheterization confirmed
severe aortic stenosis. He was admitted 08/09/2024 for elective SAVR with Dr. Fitch. Cardiology being asked to see patient for postoperative managementnt.
Progress Note - Corrective Therapist
Subjective
Date of Service: August 18, 2024
feeling well. for DC today
Objective
Labs:
08/17/24 04:13
08/17/24 04:13
Labs
Hgb 10.0 g/dL (13.0-18.0) L 08/17/24 04:13
Hct 28.9 % (39.0-52.0) L 08/17/24 04:13
Plt Count 361 10^3/uL (130-400) D 08/17/24 04:13
PT 15.2 Sec (11.4-14.6) H 08/09/24 19:55
INR 1.22 08/09/24 19:55
APTT 30.0 Sec (23.4-35.0) 08/09/24 12:03
Sodium 137 mmol/L (135-145) 08/17/24 04:13
Potassium 4.7 mmol/L (3.5-5.1) 08/17/24 04:13
BUN 23 mg/dl (9-20) H 08/17/24 04:13
Creatinine 1.0 mg/dL (0.7-1.3) 08/17/24 04:13
Glucose 110 mg/dl (70-99) H 08/17/24 04:13
Vital Signs and I&O:
Vital Signs
Temp Pulse Resp BP Pulse Ox
98 F 71 18 135/76 98
08/18/24 08:00 08/18/24 12:30 08/18/24 08:00 08/18/24 11:01 08/18/24 11:01
Vital Signs
Temp Pulse Resp BP Pulse Ox
98 F 71 18 135/76 98
08/18/24 08:00 08/18/24 12:30 08/18/24 08:00 08/18/24 11:01 08/18/24 11:01
Intake & Output
08/16/24 08/17/24 08/18/24 08/19/24
07:59 07:59 07:59 07:59
Intake Total 240 / 480 1160 / 1160 240 / 240
Output Total 2375 / 2375 2750 / 2750 2475 / 2475
Balance -2135 / -1895 -1590 / -1590 -2475 / -2235 240 / 240
Physical Exam
Physical Exam
GEN: No distress, awake, alert, oriented x3. sitting in chair
HEENT: supple, anicteric, mmm, eomi
LUNGS: CTA B/L, no wheezes/rales
CV: Reg, S1/S2, no murmur
ABD: soft, BS+, NT/ND
EXT: No cyanosis, clubbing. trace edema of B/L LE
NEURO: Gross non-focal
SKIN: Warm, pink, dry. No rash. Sternotomy dressing c/d/i.
--- NOTE | 2024-08-18 14:26 | CM ---
Reviewed chart. Met with Mr. Huffman to review discharge plans. He states he is feeling well and maybe able to go home soon. He ambulated in the hallway 850 feet. We reviewed a home visit by the Transitional Care Nurse. He is agreeable to a home
visit. Prior to admission he resides with his spouse in a two story home with four steps to enter. He has a full flight of steps to get to bedroom. He has a full bathroom on each level. He does not have any DME in the home. He has a prescription
plan. His spouse works from home and she will be available to assist in his care if needed. Medical work-up in progress. The discharge plan is to return home with spouse and a home visit by the Transitional Care Nurse when medically stable.
[2024-08-20 10:03] LABS: Aldosterone, Serum 16.4 ng/dL; Aldosterone/Renin Activ Ratio 9.6 ratio (<=25.0); Renin Activity Results 1.7 ng/mL/hr
== END 2024-08-18 15:16 | disposition home or self-care (01) | DRG 220 ==
LOC: CVICU 05:14
PROVIDERS: Anesthesiology; Clinical Nurse Specialist Acute Care; Physician Assistant Medical; Physician Assistant Surgical; ADMITTING PHYSICIAN Thoracic Surgery (Cardiothoracic Vascular Surgery); CONSULT PHYSICIAN Internal Medicine Critical Care Medicine; FAMILY PHYSICIAN Physician Assistant
PROC: 02RF08Z Replacement of Aortic Valve with Zooplastic Tissue, Open Approach (ICD-10-PCS; 2024-08-09)
PROC: B24BZZ4 Ultrasonography of Heart with Aorta, Transesophageal (ICD-10-PCS; 2024-08-09)
PROC: 30233K1 Transfusion of Nonautologous Frozen Plasma into Peripheral Vein, Percutaneous Approach (ICD-10-PCS; 2024-08-09)
PROC: 30233R1 Transfusion of Nonautologous Platelets into Peripheral Vein, Percutaneous Approach (ICD-10-PCS; 2024-08-09)
DX: Q23.81 Bicuspid aortic valve (principal); D62 Acute posthemorrhagic anemia; D68.8 Other specified coagulation defects; J98.11 Atelectasis; I95.1 Orthostatic hypotension; I25.10 Atherosclerotic heart disease of native coronary artery without angina pectoris; E86.1 Hypovolemia; E87.70 Fluid overload, unspecified; G43.909 Migraine, unspecified, not intractable, without status migrainosus; R33.8 Other retention of urine; Z79.82 Long term (current) use of aspirin; Z79.899 Other long term (current) drug therapy; Z85.828 Personal history of other malignant neoplasm of skin
CPT/HCPCS: 88305; 88311; 93308; 36415; 71045; 71046; 80048; 80053; 81003; 82088; 82248; 82330; 82530; 82533; 82565; 82805; 82947; 82962; 83036; 83735; 84132; 84244; 84302; 84520; 85014; 85018; 85025; 85027; 85049; 85610; 85730; 86850; 86900; 86901; 86920; 87070; 93005; 93312; 93320; 93321; 93325; 93880; 94002; C1713; P9059; P9073

== ENCOUNTER → 2024-09-06 14:05 | Outpatient (REF) | payer MEDICARE, OTHER, SELFPAY ==
[2024-09-06 18:02] LABS: Urine Albumin Trace (Neg - Trace); Urine Bilirubin Negative (Negative); Urine Character Clear (Clear); Urine Color Yellow; Urine Glucose Trace (Negative); Urine Ketone Negative (Negative); Urine Leukocyte 1+ (Negative); Urine Nitrite Negative (Negative); Urine Occult Blood Trace (Negative); Urine Specific Gravity 1.025 (<1.030); Urine Urobilinogen Negative (Neg - 1+)
[2024-09-06 18:30] LABS: Urine Bacteria Few (Negative); Urine Calcium Oxalate Crystals Present; Urine White Cell 40-50 /HPF (0-5)
== END ==
LOC: CLAB 14:05
PROVIDERS: ATTENDING PHYSICIAN Surgery
DX: R39.9 Unspecified symptoms and signs involving the genitourinary system (principal)
CPT/HCPCS: 81003; 81015; 87086; 87088; 87186

== ENCOUNTER 2024-09-24 09:38 | Outpatient (RCR) | payer MEDICARE, OTHER, SELFPAY | END 2024-09-24 23:59 | disposition home or self-care (01) | LOC: CRHB 09:38 | PROVIDERS: ATTENDING PHYSICIAN Internal Medicine Cardiovascular Disease | DX: I35.0 Nonrheumatic aortic (valve) stenosis (principal); Z95.4 Presence of other heart-valve replacement | CPT/HCPCS: G0422; G0423 ==

== ENCOUNTER 2024-10-25 10:43 | Outpatient (RCR) | payer MEDICARE, OTHER, SELFPAY | END 2024-10-25 23:59 | disposition home or self-care (01) | LOC: CRHB 10:43 | PROVIDERS: ATTENDING PHYSICIAN Internal Medicine Cardiovascular Disease; FAMILY PHYSICIAN Physician Assistant | DX: Z95.4 Presence of other heart-valve replacement (principal) | CPT/HCPCS: G0422; G0423 ==

== ENCOUNTER → 2024-11-02 15:12 | Outpatient (REF) | payer MEDICARE, OTHER, SELFPAY | LOC: RAD 15:12 | PROVIDERS: ATTENDING PHYSICIAN Thoracic Surgery (Cardiothoracic Vascular Surgery); FAMILY PHYSICIAN Physician Assistant | DX: Z98.890 Other specified postprocedural states (principal); V89.2XXA Person injured in unspecified motor-vehicle accident, traffic, initial encounter | CPT/HCPCS: 71046 ==

== ENCOUNTER 2024-11-26 09:53 | Outpatient (RCR) | payer MEDICARE, OTHER, SELFPAY | END 2024-11-26 23:59 | disposition home or self-care (01) | LOC: CRHB 09:53 | PROVIDERS: ATTENDING PHYSICIAN Internal Medicine Cardiovascular Disease; FAMILY PHYSICIAN Physician Assistant | DX: Z95.4 Presence of other heart-valve replacement (principal) | CPT/HCPCS: G0422; G0423 ==

== ENCOUNTER 2024-12-13 10:13 | Outpatient (RCR) | payer MEDICARE, OTHER, SELFPAY | END 2024-12-13 23:59 | disposition home or self-care (01) | LOC: CRHB 10:13 | PROVIDERS: ATTENDING PHYSICIAN Internal Medicine Cardiovascular Disease; FAMILY PHYSICIAN Physician Assistant | DX: Z95.4 Presence of other heart-valve replacement (principal) | CPT/HCPCS: G0422; G0423 ==

== ENCOUNTER → 2024-12-15 08:36 | Outpatient (REF) | payer MEDICARE, OTHER, SELFPAY ==
[2024-12-15 09:50] LABS: % Basophils 0.5 % (0-2); % Eosinophils 1.5 % (0-6); % Immature Granulocytes 0.2 % (0-0.5); % Lymphocytes 32.2 % (20.5-51.1); % Monocytes 12.3 % (1.7-9.3); % Neutrophils 53.3 % (42.2-75.2); Absolute Eosinophils 0.1 10^3/uL (0-0.7); Absolute Lymphocytes 1.3 10^3/uL (1.2-3.4); Absolute Monocytes 0.5 10^3/uL (0.1-0.6); Absolute Neutrophils 2.2 10^3/uL (1.4-6.5); Hemoglobin 14.9 g/dL (13.0-18.0); Mean Corp Hgb Conc. 33.1 g/dL (33.0-37.0); Mean Corpuscular Hgb 27.4 pg (27.0-31.0); Mean Corpuscular Volume 82.9 fL (80.0-94.0); Mean Platelet Volume 9.6 fL (7.4-10.4); Nucleated Red Blood Cells % 0 % (-); Platelet Count 251 10^3/uL (130-400); Red Blood Cell Count 5.43 10^6/uL (4.70-6.10); Red Cell Dist. Width 16.9 % (11.5-14.5); White Blood Cell Count 4.1 10^3/uL (4.8-10.8)
[2024-12-15 11:52] LABS: ALT (SGPT) 21 U/L (0-50); AST (SGOT) 31 U/L (17-59); Albumin 4.8 g/dl (3.5-5.0); Alkaline Phosphatase 83 U/L (38-126); Blood Urea Nitrogen 23 mg/dl (9-20); Calcium 9.1 mg/dl (8.4-10.2); Carbon Dioxide 26 mmol/L (22-30); Chloride 100 mmol/L (98-107); Glucose 95 mg/dl (70-99); Sodium 135 mmol/L (135-145); Total Protein 7.4 g/dl (6.3-8.2); eGFR > 60.00
[2024-12-15 18:29] LABS: HDL Cholesterol 85 mg/dl; LDL Cholesterol, Calculated 154 mg/dl; Total Cholesterol 250 mg/dl (50-199); Triglyceride 56 mg/dl (10-149); Very Low Density Lipoprotein 11 mg/dl (0-30)
== END ==
LOC: REG 08:36
PROVIDERS: ATTENDING PHYSICIAN Physician Assistant
DX: Z09 Encounter for follow-up examination after completed treatment for conditions other than malignant neoplasm (principal); D64.9 Anemia, unspecified; Z95.2 Presence of prosthetic heart valve; I25.10 Atherosclerotic heart disease of native coronary artery without angina pectoris
CPT/HCPCS: 36415; 80053; 80061; 85025